=== PATIENT | female | born 1960 ===

== ENCOUNTER 2017-06-20 19:58 | Inpatient (IN) | payer OTHER ==
[2017-06-20 21:48] LABS: BASO # 0.1 K/uL (0.0-0.2); BASO % 0.3 % (0.0-2.0); EOS % 0.1 % (0.0-4.0); HEMOGLOBIN 12.9 g/dL (11.0-16.0); LYMPH # 0.7 K/uL (1.0-4.3); LYMPH % 4.1 % (20.0-40.0); MEAN CORPUSCULAR HEMOGLOBIN 31.6 pg (27.0-31.0); MEAN PLATELET VOLUME 8.8 fL (7.2-11.7); MONO # 0.2 K/uL (0.0-0.8); MONO % 1.3 % (0.0-10.0); NEUT # 16.9 K/uL (1.8-7.0); NEUT % 94.2 % (50.0-75.0); PLATELET COUNT 238 K/uL (130-400); RBC 4.07 Mil/uL (3.80-5.20); RED CELL DISTRIBUTION WIDTH 12.4 % (11.5-14.5)
[2017-06-20 21:50] LABS: MEAN CELL VOLUME 92.9 fL (81.0-99.0); WHITE BLOOD COUNT 17.9 K/uL (4.8-10.8)
[2017-06-20 21:59] LABS: ALBUMIN 4.6 g/dL (3.5-5.0); ALT/SGPT 27 U/L (9-52); AST/SGOT 32 U/L (14-36); BLOOD UREA NITROGEN 17 mg/dL (7-17); CALCIUM 8.8 mg/dl (8.6-10.4); GFR AFRICAN-AMERICAN > 60; GFR NON-AFRICAN AMERICAN > 60; LIPASE 43 U/L (23-300)
[2017-06-20 22:01] LABS: ALB/GLOB RATIO 1.2 (1.0-2.1)
[2017-06-20 22:17] LABS: BANDS 5 % (0-2); BASOPHIL 1 % (0-2); LARGE PLATELETS PRESENT; LYMPHOCYTE 3 % (20-40); MONOCYTE 1 % (0-10); NEUTROPHIL 90 % (50-75); PLATELET ESTIMATE NORMAL (NORMAL); TOTAL CELLS COUNTED 100
[2017-06-20] MEDS ORDERED: Sodium Chloride 0.9% 1,000 ML IV STA (22:23)
[2017-06-20] MEDS ORDERED: Sodium Chloride 0.9% 1,000 ML ONE (22:31)
[2017-06-20 23:07] LABS: URINE BACTERIA MANY (<OCC); URINE BILIRUBIN NEGATIVE (NEGATIVE); URINE BLOOD 3+ (NEGATIVE); URINE CLARITY Hazy (Clear); URINE COLOR Red (YELLOW); URINE GLUCOSE (UA) NORMAL (Normal); URINE LEUKOCYTE ESTERASE 3+ Leu/uL (Negative); URINE NITRATE POSITIVE (NEGATIVE); URINE PROTEIN 2+ mg/dL (NEGATIVE); URINE UROBILINOGEN NORMAL mg/dL (0.2-1.0)
--- NOTE | 2017-06-20 23:53 | CT ---
EXAM: CT Abdomen and Pelvis Without Intravenous Contrast CLINICAL HISTORY: 56 years old, female; Pain; Abdominal pain and other: Vomiting; Patient HX: 01-26-13 sent images; Additional info: Leukocytosis. Suprapubic pain. Hematuria. TECHNIQUE: Axial computed tomography images of the abdomen and pelvis without intravenous contrast. All CT scans at this facility use one or more dose reduction techniques, viz.: automated exposure control; ma/kV adjustment per patient size (including targeted exams where dose is matched to indication; i.e. head); or iterative reconstruction technique. Coronal and sagittal reformatted images were created and reviewed. COMPARISON: CT - ABD PELVIS PO CONTRAST ONLY 2013-01-26 08:19 FINDINGS: Lower thorax: 4 mm nodule in the right lower lobe. Series 2 image #7. This is unchanged. ABDOMEN: Liver: Unremarkable. Gallbladder and bile ducts: Unremarkable. No calcified stones. No ductal dilation. Pancreas: Unremarkable. No ductal dilation. Spleen: Unremarkable. No splenomegaly. Adrenals: Unremarkable. No mass. Kidneys and ureters: Bilateral nephrolithiasis. Left mild left hydronephrosis. Left perinephric stranding. Stomach and bowel: Unremarkable. No obstruction. Appendix: No findings to suggest acute appendicitis. PELVIS: Bladder: 4 mm bladder calculus. This could represent a recently passed stone. Reproductive: Unremarkable as visualized. ABDOMEN and PELVIS: Intraperitoneal space: Unremarkable. No free air. No significant fluid collection. Bones/joints: Scoliosis. Lumbar spinal degenerative changes. No acute fracture. No dislocation. Soft tissues: Unremarkable. Vasculature: Atherosclerotic vascular disease. No abdominal aortic aneurysm. Lymph nodes: Unremarkable. No enlarged lymph nodes. IMPRESSION: 1. Mild left hydronephrosis and perinephric stranding. Suspect recently passed 4 mm calculus, which is now within the bladder. Correlate with timeline of patient's symptoms. Cannot exclude concomitant pyelonephritis. 2. Bilateral nephrolithiasis. 3. Remainder of findings as above.
[2017-06-21] MEDS ORDERED: cefTRIAXone IV 1 gm in Dextros 50 ML IVPB STA (00:07)
--- NOTE | 2017-06-21 00:09 | C.PDOC ---
Time Seen by Provider: 06/20/17 22:16 Chief Complaint (Nursing): Abdominal Pain History Per: Patient Onset/Duration Of Symptoms: Hrs (since this afternoon) Current Symptoms Are (Timing): Still Present Severity: Moderate Location Of Pain/Discomfort: Suprapubic Quality Of Discomfort: "Pain" Associated Symptoms: Nausea, Vomiting, Back Pain, Urinary Symptoms Exacerbating Factors: None Alleviating Factors: None Last Bowel Movement: Today Additional History Per: Prior Records Abnormal Vaginal Bleeding: No Last Menstral Period: Menopause Past Medical History Reviewed: Historical Data, Nursing Documentation, Vital Signs Vital Signs: Last Vital Signs Temp 98.4 F 06/20/17 21:08 Pulse 93 H 06/20/17 21:08 Resp 16 06/20/17 21:08 BP 150/88 06/20/17 21:08 Pulse Ox 100 06/20/17 21:08 - Medical History PMH: Hypercholesterolemia, Kidney Stones Surgical History: No Surg Hx - [facility] Procedures TU REMOV URETER OBSTRUCT (02/01/13) URETERAL CATHETERIZATION (02/01/13) Family History: States: Unknown Family Hx - Social History Hx Tobacco Use: No Hx Alcohol Use: No Hx Substance Use: No - Immunization History Hx Influenza Vaccination: Yes Hx Pneumococcal Vaccination: No Review Of Systems Except As Marked, All Systems Reviewed And Found Negative. Constitutional: Positive for: Malaise Cardiovascular: Negative for: Chest Pain Respiratory: Negative for: Shortness of Breath Gastrointestinal: Positive for: Nausea, Vomiting, Abdominal Pain Genitourinary: Positive for: Hematuria Musculoskeletal: Negative for: Neck Pain Skin: Negative for: Rash Neurological: Negative for: Weakness, Numbness Physical Exam - Physical Exam Appears: Other (Ill appearing) Skin: Normal Color, Warm, Dry, No Rash Head: Atraumatic, Normacephalic Eye(s): bilateral: Normal Inspection, PERRL, EOMI Neck: Normal ROM, Supple Cardiovascular: Rhythm Regular Respiratory: Normal Breath Sounds, No Accessory Muscle Use Gastrointestinal/Abdominal: Soft, Tenderness (suprapubic) Back: CVA Tenderness (left) Extremity: Normal ROM Neurological/Psych: Oriented x3, Normal Motor, Normal Sensation ED Course And Treatment - Laboratory Results Result Diagrams: 06/20/17 21:35 06/20/17 21:35 Lab Interpretation: Abnormal Interpretation Of Abnormal: Leukocytosis with left shift. UTI. O2 Sat by Pulse Oximetry: 100 Pulse Ox Interpretation: Normal - CT Scan/US CT abd/pelv Other Rad Studies (CT/US): Read By Radiologist, Radiology Report Reviewed CT/US Interpretation: IMPRESSION: 1. Mild left hydronephrosis and perinephric stranding. Suspect recently. passed 4 mm calculus, which is now within the bladder. Correlate with timeline. of patient's symptoms. Cannot exclude concomitant pyelonephritis. 2. Bilateral nephrolithiasis. 3. Remainder of findings as above. Progress - Interventions Interventions:: Observation, Intravenous fluid - Medications Administered Intravenous: Antiemetic, H-2 vikas, NSAID - Data Reviewed Data Reviewed: Lab, Diagnostic imaging, Old records - Patient Status Patient status: Partially improved - Continuity of Care Discussed patient case with:: Patient, ED Nurse, Covering for PMD - Patient Plan Patient Plan: Admission Disposition Counseled Patient/Family Regarding: Studies Performed, Diagnosis - Disposition Disposition: HOSPITALIZED Disposition Time: 00:12 Condition: FAIR - Clinical Impression Clinical Impression: Acute pyelonephritis, Kidney stones
[2017-06-21 00:22] VITALS: RESP 20
[2017-06-21] MEDS: Sodium Chloride 0.9% 1,000 ML IV SCH ×3 (01:03→21:03)
--- NOTE | 2017-06-21 02:48 | CP.PCM.HP ---
<Elan Campbell - Last Filed: 06/21/17 06:04> History of Present Illness - History of Present Illness History of Present Illness: PGY-1 H&P for Dr. Catalan CC: "pain in my belly" This is a 56 year old lady with PMHx hyperlipidemia and nephrolithiasis who presents of sudden onset suprapubic pain. It is described as a non-radiating cramping pain 10/10 in intensity. It began at around 4:30 PM yesterday per patient. It seems to have improved with IV fluids and Toradol in the ED. Patient also complaining of nausea and vomiting. Patient cannot count the number of times she has vomited today as a result of this issue. Patient denies dysuria or pressure with urination. However, she does admit that she usually doesn't feel these symptoms when she has a UTI. Patient admits intermittent chills but denies fever. PMHx: hyperlipidemia, nephrolithiasis PSHx: unspecified surgery for kidney stones in 2012 Allergies: NKDA Social: Denies tobacco, alcohol, drugs. 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 Family Hx: Mother with HTN, DM, liver problems. Father with type 1 DM. PMD: Dr. King Urologist: Dr. Bennett [place] meds: ASA 81 mg PO daily, Simvastatin, patient unsure of dose Present on Admission - Present on Admission Any Indicators Present on Admission: No Review of Systems - Constitutional Constitutional: Chills (intermittent). absent: Fever, Headache - EENT Eyes: absent: Change in Vision Ears: absent: Decreased Hearing Nose/Mouth/Throat: absent: Nasal Congestion - Cardiovascular Cardiovascular: absent: Chest Pain - Respiratory Respiratory: absent: Cough, Dyspnea - Gastrointestinal Gastrointestinal: Other (suprapubic tenderness) - Genitourinary Genitourinary: absent: Dysuria, Hematuria - Musculoskeletal Musculoskeletal: absent: Back Pain - Integumentary Integumentary: absent: Rash - Neurological Neurological: absent: Weakness - Psychiatric Psychiatric: absent: Anxiety - Endocrine Endocrine: absent: Fatigue, Palpitations Past Patient History - Past Medical History & Family History Past Medical History?: No - Past Social History Smoking Status: Never Smoked - CARDIAC Hx Cardiac Disorders: Yes Hx Hypercholesterolemia: Yes - PULMONARY Hx Respiratory Disorders: No - NEUROLOGICAL Hx Neurological Disorder: No - HEENT Hx HEENT Problems: No - RENAL Hx Chronic Kidney Disease: Yes Hx Kidney Stones: Yes Other/Comment: HX Lithotripsy by in 2013 - ENDOCRINE/METABOLIC Hx Endocrine Disorders: No - HEMATOLOGICAL/ONCOLOGICAL Hx Blood Disorders: No - INTEGUMENTARY Hx Dermatological Problems: No - MUSCULOSKELETAL/RHEUMATOLOGICAL Hx Musculoskeletal Disorders: No Hx Falls: No - GASTROINTESTINAL Hx Gastrointestinal Disorders: No - GENITOURINARY/GYNECOLOGICAL Hx Genitourinary Disorders: Yes Hx Hematuria: Yes (Lithotrpsy in 2013) - PSYCHIATRIC Hx Psychophysiologic Disorder: No Hx Substance Use: No - SURGICAL HISTORY Hx Surgeries: Yes Hx Section: Yes (1x) Other/Comment: for kidney stone 2013 - ANESTHESIA Hx Anesthesia: Yes Hx Anesthesia Reactions: No Hx Malignant Hyperthermia: No Has any member of the family had a problem w/ anesthesia?: No Meds Allergies/Adverse Reactions: Allergies Allergy/AdvReac Type Severity Reaction Status Date / Time No Known Allergies Allergy Verified 06/20/17 21:14 Physical Exam - Constitutional Appears: No Acute Distress - Head Exam Head Exam: ATRAUMATIC, NORMOCEPHALIC - Eye Exam Eye Exam: EOMI, PERRL - ENT Exam ENT Exam: Mucous Membranes Moist - Respiratory Exam Respiratory Exam: Clear to Auscultation Bilateral. absent: Rales, Rhonchi, Wheezes - Cardiovascular Exam Cardiovascular Exam: REGULAR RHYTHM, +S1, +S2 - GI/Abdominal Exam GI & Abdominal Exam: Normal Bowel Sounds, Soft, Tenderness (tenderness to palpation to the left of the umbilicus). absent: Distended, Firm, Guarding - Extremities Exam Extremities exam: Positive for: pedal pulses present. Negative for: pedal edema , tenderness - Back Exam Back exam: CVA tenderness (L). absent: CVA tenderness (R) - Neurological Exam Neurological exam: Alert, CN II-XII Intact, Oriented x3 - Psychiatric Exam Psychiatric exam: Normal Affect, Normal Mood - Skin Skin Exam: Dry, Intact, Pallor, Warm Results - Vital Signs Recent Vital Signs: Last Vital Signs Temp 100 F H 06/21/17 01:07 Pulse 96 H 06/21/17 01:20 Resp 20 06/21/17 01:20 BP 126/76 06/21/17 00:22 Pulse Ox 99 06/21/17 00:22 - Labs Result Diagrams: 06/20/17 21:35 06/20/17 21:35 Labs: Laboratory Results - last 24 hr 06/20/17 06/20/17 06/20/17 21:35 21:35 22:59 WBC 17.9 H D RBC 4.07 Hgb 12.9 Hct 37.8 MCV 92.9 D MCH 31.6 H MCHC 34.0 RDW 12.4 Plt Count 238 MPV 8.8 Neut % (Auto) 94.2 H Lymph % (Auto) 4.1 L [place] % (Auto) 1.3 Eos % (Auto) 0.1 Baso % (Auto) 0.3 Neut # 16.9 H Lymph # 0.7 L [place] # 0.2 Eos # 0.0 Baso # 0.1 Neutrophils % (Manual) 90 H Band Neutrophils % 5 H Lymphocytes % (Manual) 3 L Monocytes % (Manual) 1 Basophils % (Manual) 1 Platelet Estimate Normal Large Platelets Present Sodium 134 Potassium 3.4 L Chloride 99 Carbon Dioxide 27 Anion Gap 12 BUN 17 Creatinine 0.8 Est GFR ( Amer) > 60 Est GFR (Non-Af Amer) > 60 Random Glucose 170 H Calcium 8.8 Total Bilirubin 0.8 AST 32 ALT 27 Alkaline Phosphatase 71 Total Protein 8.5 H Albumin 4.6 Globulin 3.9 Albumin/Globulin Ratio 1.2 Lipase 43 Urine Color Red Urine Clarity Hazy Urine pH 6.0 Ur Specific [place] 1.013 Urine Protein 2+ H Urine Glucose (UA) Normal Urine Ketones Trace Urine Blood 3+ H Urine Nitrate Positive H Urine Bilirubin Negative Urine Urobilinogen Normal Ur Leukocyte Esterase 3+ H Urine WBC (Auto) 977 H Urine RBC (Auto) 1809 H Urine Bacteria Many H Assessment & Plan - Assessment and Plan (Free Text) Plan: Pyelonephritis UA shows positive nitrates, 3+ leukocyte esterase, 3+ blood, 2+ protein f/u urine cultures f/u blood cultures Rocephin 1 gm IV Q12H NS 100 cc/hr CT abdomen shows mild left hydronephrosis and perinephric stranding. Suspect recently passed 4 mm calculus, which is now within the bladder. Tylenol prn History of Nephrolithiasis Bilateral nephrolithiasis seen on CT abdomen/pelvis Patient's urologist Dr. Bennett consulted, help appreciated. History of Hyperlipidemia Simvastatin is NF started Crestor 5 mg PO HS f/u lipid panel Prophylactic Measures Liquid Diet due to nausea/vomiting. Advance as tolerated. Zofran 4 mg IV prn Heparin 5000 SC Q8H Protonix 40 mg PO daily Case DW Dr. Alayna Campbell PGY-1 <Jones Catalan - Last Filed: 06/21/17 06:25> Results - Vital Signs Recent Vital Signs: Last Vital Signs Temp 99.5 F 06/21/17 04:30 Pulse 96 H 06/21/17 01:20 Resp 20 06/21/17 01:20 BP 124/78 06/21/17 01:20 Pulse Ox 98 06/21/17 01:20 - Labs Result Diagrams: 06/20/17 21:35 06/20/17 21:35 Labs: Laboratory Results - last 24 hr 06/20/17 06/20/17 06/20/17 21:35 21:35 22:59 WBC 17.9 H D RBC 4.07 Hgb 12.9 Hct 37.8 MCV 92.9 D MCH 31.6 H MCHC 34.0 RDW 12.4 Plt Count 238 MPV 8.8 Neut % (Auto) 94.2 H Lymph % (Auto) 4.1 L [place] % (Auto) 1.3 Eos % (Auto) 0.1 Baso % (Auto) 0.3 Neut # 16.9 H Lymph # 0.7 L [place] # 0.2 Eos # 0.0 Baso # 0.1 Neutrophils % (Manual) 90 H Band Neutrophils % 5 H Lymphocytes % (Manual) 3 L Monocytes % (Manual) 1 Basophils % (Manual) 1 Platelet Estimate Normal Large Platelets Present Sodium 134 Potassium 3.4 L Chloride 99 Carbon Dioxide 27 Anion Gap 12 BUN 17 Creatinine 0.8 Est GFR ( Amer) > 60 Est GFR (Non-Af Amer) > 60 Random Glucose 170 H Calcium 8.8 Total Bilirubin 0.8 AST 32 ALT 27 Alkaline Phosphatase 71 Total Protein 8.5 H Albumin 4.6 Globulin 3.9 Albumin/Globulin Ratio 1.2 Lipase 43 Urine Color Red Urine Clarity Hazy Urine pH 6.0 Ur Specific [place] 1.013 Urine Protein 2+ H Urine Glucose (UA) Normal Urine Ketones Trace Urine Blood 3+ H Urine Nitrate Positive H Urine Bilirubin Negative Urine Urobilinogen Normal Ur Leukocyte Esterase 3+ H Urine WBC (Auto) 977 H Urine RBC (Auto) 1809 H Urine Bacteria Many H Assessment & Plan - Date & Time Date: 06/21/17 (I have seen and examined the patient. I agree with the findings and plan of care as documented by Dr. Campbell. Patient with pyelonephritis. History of nephrolithiasis. Consult to Dr Bennett. Leoncio. Symptomatic treatment. Monitor for acute changes.) Time: 06:24 Attending/Attestation - Attestation I have personally seen and examined this patient.: Yes I have fully participated in the care of the patient.: Yes I have reviewed all pertinent clinical information: Yes
[2017-06-21 06:52] LABS: BASO % 0.1 % (0.0-2.0); HEMOGLOBIN 11.5 g/dL (11.0-16.0); LYMPH # 0.6 K/uL (1.0-4.3); LYMPH % 2.5 % (20.0-40.0); MEAN CELL VOLUME 92.3 fL (81.0-99.0); MEAN CORPUSCULAR HEMOGLOBIN 31.9 pg (27.0-31.0); MEAN CORPUSCULAR HGB CONC 34.6 g/dL (33.0-37.0); MEAN PLATELET VOLUME 8.8 fL (7.2-11.7); MONO % 4.4 % (0.0-10.0); NEUT # 21.1 K/uL (1.8-7.0); PLATELET COUNT 177 K/uL (130-400); RBC 3.61 Mil/uL (3.80-5.20); RED CELL DISTRIBUTION WIDTH 12.4 % (11.5-14.5); WHITE BLOOD COUNT 22.6 K/uL (4.8-10.8)
[2017-06-21] MEDS ORDERED: Potassium Chloride 20 mEq/15 ml LIQ UD PO ONE (07:00)
[2017-06-21 07:01] LABS: ALB/GLOB RATIO 1.1 (1.0-2.1); ALBUMIN 3.6 g/dL (3.5-5.0); ALT/SGPT 36 U/L (9-52); AST/SGOT 28 U/L (14-36); BLOOD UREA NITROGEN 15 mg/dL (7-17); CALCIUM 8.2 mg/dl (8.6-10.4); GFR AFRICAN-AMERICAN > 60; GFR NON-AFRICAN AMERICAN > 60; HDL CHOLESTEROL 57 mg/dL (30-70)
[2017-06-21 07:08] LABS: LDL CHOLESTEROL 63 mg/dL (0-129)
[2017-06-21 08:59] LABS: ANISOCYTOSIS SLIGHT; BANDS 11 % (0-2); HYPOCHROMIC SLIGHT; LYMPHOCYTE 3 % (20-40); MONOCYTE 3 % (0-10); NEUTROPHIL 83 % (50-75); PLATELET ESTIMATE NORMAL (NORMAL); POIKILOCYTOSIS SLIGHT; TOTAL CELLS COUNTED 100
[2017-06-21] MEDS: Pantoprazole 40 mg EC Tab PO SCH (09:08)
--- NOTE | 2017-06-21 09:34 | CP.PCM.PN ---
<Talia Matos - Last Filed: 06/21/17 15:45> Subjective - Date & Time of Evaluation Date of Evaluation: 06/21/17 Time of Evaluation: 07:00 - Subjective Subjective: PGY1- Medicine Note- Dr. Hoff's Service Patient seen and examined at bedside and in no acute distress. Patient says she feels fevers and chills. Patient having left lower abdominal pain which she rates a 6/10. Patient had one episode of vomiting after drinking precious angel this morning. Patient denies any constipation or diarrhea. Patient denies shortness of breath or chest pain. Objective - Vital Signs/Intake and Output Vital Signs (last 24 hours): Temp Pulse Resp BP Pulse Ox 100.7 F H 105 H 20 162/73 H 96 06/21/17 07:50 06/21/17 07:50 06/21/17 07:50 06/21/17 07:50 06/21/17 07:50 - Medications Medications: Current Medications Acetaminophen (Tylenol 325mg Tab) 650 mg PO Q6 PRN PRN Reason: fever, mild pain Last Admin: 06/21/17 09:09 Dose: 650 mg Heparin Sodium (Porcine) (Heparin) 5,000 units SC Q8 [facility] Last Admin: 06/21/17 06:23 Dose: 5,000 units Sodium Chloride (Sodium Chloride 0.9%) 1,000 mls @ 100 mls/hr IV .Q10H [facility] Last Admin: 06/21/17 01:03 Dose: 100 mls/hr Ceftriaxone Sodium 1 gm/ (Sodium Chloride) 100 mls @ 100 mls/hr IVPB Q12H [facility] Ondansetron HCl (Zofran Inj) 4 mg IVP Q6 PRN PRN Reason: Nausea/Vomiting Last Admin: 06/21/17 04:45 Dose: 4 mg Pantoprazole Sodium (Protonix Ec Tab) 40 mg PO DAILY [facility] Last Admin: 06/21/17 09:08 Dose: 40 mg Pneumococcal Polyvalent Vaccine (Pneumovax 23 Vaccine) 0.5 ml IM .ONCE ONE Stop: 06/24/17 14:01 Rosuvastatin Calcium (Crestor) 5 mg PO HS [facility] - Labs Labs: 06/21/17 06:39 06/21/17 06:39 - Constitutional Appears: Non-toxic, No Acute Distress - Head Exam Head Exam: ATRAUMATIC, NORMAL INSPECTION, NORMOCEPHALIC - Eye Exam Eye Exam: EOMI, Normal appearance - Respiratory Exam Respiratory Exam: Clear to Ausculation Bilateral, NORMAL BREATHING PATTERN. absent: Rales, Rhonchi, Wheezes, Stridor - Cardiovascular Exam Cardiovascular Exam: REGULAR RHYTHM, +S1, +S2 - GI/Abdominal Exam GI & Abdominal Exam: Soft, Tenderness, Normal Bowel Sounds. absent: Firm, Guarding - Extremities Exam Extremities Exam: Normal Inspection. absent: Pedal Edema - Back Exam Back Exam: CVA tenderness (L) - Neurological Exam Neurological Exam: Alert, Awake, Oriented x3 - Psychiatric Exam Psychiatric exam: Normal Affect, Normal Mood - Skin Skin Exam: Intact, Normal Color, Warm Assessment and Plan - Assessment and Plan (Free Text) Assessment: Pyelonephritis UA shows positive nitrates, 3+ leukocyte esterase, 3+ blood, 2+ protein WBC: 22.6, 11 bands f/u urine cultures f/u blood cultures Ceftriaxone given in ED Merrem 1gm q8h (started on 06/21/17) Vanco 1gm q12h (started on 06/21/17) NS 100 cc/hr CT abdomen shows mild left hydronephrosis and perinephric stranding. Suspect recently passed 4 mm calculus, which is now within the bladder. Tylenol prn History of Nephrolithiasis Bilateral nephrolithiasis seen on CT abdomen/pelvis Patient's urologist Dr. Bennett consulted, help appreciated. History of Hyperlipidemia Simvastatin is NF started Crestor 5 mg PO HS Triglycerides: 36 Cholesterol: 141 LDL: 63 HDL: 57 Prophylactic Measures Liquid Diet due to nausea/vomiting. Advance as tolerated. Zofran 4 mg IV prn Heparin 5000 SC Q8H Protonix 40 mg PO daily <Wolfgang Hoff - Last Filed: 06/21/17 19:13> Objective - Vital Signs/Intake and Output Vital Signs (last 24 hours): Temp Pulse Resp BP Pulse Ox 100.7 F H 95 H 20 109/70 95 06/21/17 17:18 06/21/17 15:10 06/21/17 15:10 06/21/17 15:10 06/21/17 15:10 - Medications Medications: Current Medications Acetaminophen (Tylenol 325mg Tab) 650 mg PO Q6 PRN PRN Reason: fever, mild pain Last Admin: 06/21/17 16:14 Dose: 650 mg Heparin Sodium (Porcine) (Heparin) 5,000 units SC Q8 [facility] Last Admin: 06/21/17 13:15 Dose: 5,000 units Sodium Chloride (Sodium Chloride 0.9%) 1,000 mls @ 100 mls/hr IV .Q10H [facility] Last Admin: 06/21/17 13:14 Dose: 100 mls/hr Meropenem 1 gm/ Sodium (Chloride) 100 mls @ 100 mls/hr IVPB Q8H [facility] Last Admin: 06/21/17 16:15 Dose: 100 mls/hr Vancomycin/Sodium Chloride (Vancomycin 1 Gm/Ns 200 Ml) 1 gm in 200 mls @ 133.333 mls/hr IVPB Q12H [facility] Stop: 06/26/17 13:01 Last Admin: 06/21/17 13:14 Dose: 133.333 mls/hr Ondansetron HCl (Zofran Inj) 4 mg IVP Q6 PRN PRN Reason: Nausea/Vomiting Last Admin: 06/21/17 04:45 Dose: 4 mg Pantoprazole Sodium (Protonix Ec Tab) 40 mg PO DAILY [facility] Last Admin: 06/21/17 09:08 Dose: 40 mg Pneumococcal Polyvalent Vaccine (Pneumovax 23 Vaccine) 0.5 ml IM .ONCE ONE Stop: 06/24/17 14:01 Rosuvastatin Calcium (Crestor) 5 mg PO HS [facility] - Labs Labs: 06/21/17 06:39 06/21/17 06:39 Attending/Attestation - Attestation I have personally seen and examined this patient.: Yes I have fully participated in the care of the patient.: Yes I have reviewed all pertinent clinical information, including history, physical exam and plan: Yes Notes (Text): Seen and examined patient has fever,leukocytosis with bandemia.CT consistant with pyelonephritis d/w Dr Clarke statrted on meropenem and vanco I agree with the documentation of the assessment and the plan
[2017-06-21] MEDS ORDERED: Piperacill/Tazo 3.375gm in Dex 3.375 GM/50 ML BAG IVPB SCH (11:00)
[2017-06-21] MEDS: Meropenem 1 GM in Sodium Chloride 0.9% 100 ML IVPB SCH ×2 (11:01→16:15)
[2017-06-21] MEDS: Vancomycin 1 gm/NS 200 ml 1 GM/200 ML BAG IVPB SCH (13:14)
--- NOTE | 2017-06-21 17:55 | CP.PCM.CON ---
History of Present Illness - History of Present Illness History of Present Illness: dictated Past Patient History - Past Medical History & Family History Past Medical History?: No - Past Social History Smoking Status: Never Smoked - CARDIAC Hx Cardiac Disorders: Yes Hx Hypercholesterolemia: Yes - PULMONARY Hx Respiratory Disorders: No - NEUROLOGICAL Hx Neurological Disorder: No - HEENT Hx HEENT Problems: No - RENAL Hx Chronic Kidney Disease: Yes Hx Kidney Stones: Yes Other/Comment: HX Lithotripsy by in 2012 - ENDOCRINE/METABOLIC Hx Endocrine Disorders: No - HEMATOLOGICAL/ONCOLOGICAL Hx Blood Disorders: No - INTEGUMENTARY Hx Dermatological Problems: No - MUSCULOSKELETAL/RHEUMATOLOGICAL Hx Musculoskeletal Disorders: No Hx Falls: No - GASTROINTESTINAL Hx Gastrointestinal Disorders: No - GENITOURINARY/GYNECOLOGICAL Hx Genitourinary Disorders: Yes Hx Hematuria: Yes (Lithotrpsy in 2012) - PSYCHIATRIC Hx Psychophysiologic Disorder: No Hx Substance Use: No - SURGICAL HISTORY Hx Surgeries: Yes Hx Section: Yes (1x) Other/Comment: for kidney stone 2012 - ANESTHESIA Hx Anesthesia: Yes Hx Anesthesia Reactions: No Hx Malignant Hyperthermia: No Has any member of the family had a problem w/ anesthesia?: No Meds Allergies/Adverse Reactions: Allergies Allergy/AdvReac Type Severity Reaction Status Date / Time No Known Allergies Allergy Verified 06/20/17 21:14 - Medications Medications: Current Medications Acetaminophen (Tylenol 325mg Tab) 650 mg PO Q6 PRN PRN Reason: fever, mild pain Last Admin: 06/21/17 16:14 Dose: 650 mg Heparin Sodium (Porcine) (Heparin) 5,000 units SC Q8 [facility] Last Admin: 06/21/17 13:15 Dose: 5,000 units Sodium Chloride (Sodium Chloride 0.9%) 1,000 mls @ 100 mls/hr IV .Q10H [facility] Last Admin: 06/21/17 13:14 Dose: 100 mls/hr Meropenem 1 gm/ Sodium (Chloride) 100 mls @ 100 mls/hr IVPB Q8H [facility] Last Admin: 06/21/17 16:15 Dose: 100 mls/hr Vancomycin/Sodium Chloride (Vancomycin 1 Gm/Ns 200 Ml) 1 gm in 200 mls @ 133.333 mls/hr IVPB Q12H [facility] Stop: 06/26/17 13:01 Last Admin: 06/21/17 13:14 Dose: 133.333 mls/hr Ondansetron HCl (Zofran Inj) 4 mg IVP Q6 PRN PRN Reason: Nausea/Vomiting Last Admin: 06/21/17 04:45 Dose: 4 mg Pantoprazole Sodium (Protonix Ec Tab) 40 mg PO DAILY [facility] Last Admin: 06/21/17 09:08 Dose: 40 mg Pneumococcal Polyvalent Vaccine (Pneumovax 23 Vaccine) 0.5 ml IM .ONCE ONE Stop: 06/24/17 14:01 Rosuvastatin Calcium (Crestor) 5 mg PO HS [facility] Results - Vital Signs Recent Vital Signs: Last Vital Signs Temp 100.7 F H 06/21/17 17:18 Pulse 95 H 06/21/17 15:10 Resp 20 06/21/17 15:10 BP 109/70 06/21/17 15:10 Pulse Ox 95 06/21/17 15:10 - Labs Result Diagrams: 06/21/17 06:39 06/21/17 06:39 Labs: Laboratory Results - last 24 hr 06/20/17 06/20/17 06/20/17 21:35 21:35 22:59 WBC 17.9 H D RBC 4.07 Hgb 12.9 Hct 37.8 MCV 92.9 D MCH 31.6 H MCHC 34.0 RDW 12.4 Plt Count 238 MPV 8.8 Neut % (Auto) 94.2 H Lymph % (Auto) 4.1 L [place] % (Auto) 1.3 Eos % (Auto) 0.1 Baso % (Auto) 0.3 Neut # 16.9 H Lymph # 0.7 L [place] # 0.2 Eos # 0.0 Baso # 0.1 Neutrophils % (Manual) 90 H Band Neutrophils % 5 H Lymphocytes % (Manual) 3 L Monocytes % (Manual) 1 Basophils % (Manual) 1 Platelet Estimate Normal Large Platelets Present Hypochromasia (manual) Poikilocytosis (manual Anisocytosis (manual) Sodium 134 Potassium 3.4 L Chloride 99 Carbon Dioxide 27 Anion Gap 12 BUN 17 Creatinine 0.8 Est GFR ( Amer) > 60 Est GFR (Non-Af Amer) > 60 Random Glucose 170 H Calcium 8.8 Total Bilirubin 0.8 AST 32 ALT 27 Alkaline Phosphatase 71 Total Protein 8.5 H Albumin 4.6 Globulin 3.9 Albumin/Globulin Ratio 1.2 Triglycerides Cholesterol LDL Cholesterol Direct HDL Cholesterol Lipase 43 Urine Color Red Urine Clarity Hazy Urine pH 6.0 Ur Specific [place] 1.013 Urine Protein 2+ H Urine Glucose (UA) Normal Urine Ketones Trace Urine Blood 3+ H Urine Nitrate Positive H Urine Bilirubin Negative Urine Urobilinogen Normal Ur Leukocyte Esterase 3+ H Urine WBC (Auto) 977 H Urine RBC (Auto) 1809 H Urine Bacteria Many H 06/21/17 06/21/17 06:39 06:39 WBC 22.6 H RBC 3.61 L Hgb 11.5 Hct 33.3 L MCV 92.3 MCH 31.9 H MCHC 34.6 RDW 12.4 Plt Count 177 MPV 8.8 Neut % (Auto) 93.0 H Lymph % (Auto) 2.5 L [place] % (Auto) 4.4 Eos % (Auto) 0.0 Baso % (Auto) 0.1 Neut # 21.1 H Lymph # 0.6 L [place] # 1.0 H Eos # 0.0 Baso # 0.0 Neutrophils % (Manual) 83 H Band Neutrophils % 11 H* Lymphocytes % (Manual) 3 L Monocytes % (Manual) 3 Basophils % (Manual) Platelet Estimate Normal Large Platelets Hypochromasia (manual) Slight Poikilocytosis (manual Slight Anisocytosis (manual) Slight Sodium 139 Potassium 3.6 Chloride 103 Carbon Dioxide 26 Anion Gap 14 BUN 15 Creatinine 0.7 Est GFR ( Amer) > 60 Est GFR (Non-Af Amer) > 60 Random Glucose 118 H Calcium 8.2 L Total Bilirubin 0.6 AST 28 ALT 36 Alkaline Phosphatase 55 Total Protein 6.9 Albumin 3.6 Globulin 3.2 Albumin/Globulin Ratio 1.1 Triglycerides 36 Cholesterol 141 LDL Cholesterol Direct 63 HDL Cholesterol 57 Lipase Urine Color Urine Clarity Urine pH Ur Specific [place] Urine Protein Urine Glucose (UA) Urine Ketones Urine Blood Urine Nitrate Urine Bilirubin Urine Urobilinogen Ur Leukocyte Esterase Urine WBC (Auto) Urine RBC (Auto) Urine Bacteria
--- NOTE | 2017-06-21 19:12 | CP.PCM.PN ---
Subjective - Date & Time of Evaluation Date of Evaluation: 06/21/17 Time of Evaluation: 19:12 - Subjective Subjective: 56 year old female admitted with Pylonephritis. Pt is being treated By ID with IV antibiotics. CT shows evidence of recently passed calculi in bladder and non obstructing stone in Kidney. Suggest start pt on Flomax Pt should strain all urine for stone. On discharge pt should have evaluation for lithotripsy by a urologist. Donald Objective - Vital Signs/Intake and Output Vital Signs (last 24 hours): Temp Pulse Resp BP Pulse Ox 100.7 F H 95 H 20 109/70 95 06/21/17 17:18 06/21/17 15:10 06/21/17 15:10 06/21/17 15:10 06/21/17 15:10 - Medications Medications: Current Medications Acetaminophen (Tylenol 325mg Tab) 650 mg PO Q6 PRN PRN Reason: fever, mild pain Last Admin: 06/21/17 16:14 Dose: 650 mg Heparin Sodium (Porcine) (Heparin) 5,000 units SC Q8 [facility] Last Admin: 06/21/17 13:15 Dose: 5,000 units Sodium Chloride (Sodium Chloride 0.9%) 1,000 mls @ 100 mls/hr IV .Q10H [facility] Last Admin: 06/21/17 13:14 Dose: 100 mls/hr Meropenem 1 gm/ Sodium (Chloride) 100 mls @ 100 mls/hr IVPB Q8H [facility] Last Admin: 06/21/17 16:15 Dose: 100 mls/hr Vancomycin/Sodium Chloride (Vancomycin 1 Gm/Ns 200 Ml) 1 gm in 200 mls @ 133.333 mls/hr IVPB Q12H [facility] Stop: 06/26/17 13:01 Last Admin: 06/21/17 13:14 Dose: 133.333 mls/hr Ondansetron HCl (Zofran Inj) 4 mg IVP Q6 PRN PRN Reason: Nausea/Vomiting Last Admin: 06/21/17 04:45 Dose: 4 mg Pantoprazole Sodium (Protonix Ec Tab) 40 mg PO DAILY [facility] Last Admin: 06/21/17 09:08 Dose: 40 mg Pneumococcal Polyvalent Vaccine (Pneumovax 23 Vaccine) 0.5 ml IM .ONCE ONE Stop: 06/24/17 14:01 Rosuvastatin Calcium (Crestor) 5 mg PO HS [facility] - Labs Labs: 06/21/17 06:39 06/21/17 06:39
--- NOTE | 2017-06-22 00:31 | CON ---
DATE: HISTORY OF PRESENT ILLNESS: Patient is a 56-year-old female. She has a history of kidney stone. She states twice she has had problems with it in 2009 and 2012. She had a surgery for kidney stone removal with Dr. Ledezma and is admitted now with pain in her belly. She does have hyperlipidemia. Denies any history of diabetes; had cramping pain on the left side, 10/10, and it began yesterday. She was given Toradol. She vomited yesterday and she vomited today also. She has nausea and she says right now she is not nauseated, but she also had the hematuria, was having some chills, but no fever. She has a history of kidney stones in the past. PAST SURGICAL HISTORY: Surgical history of kidney stone in 2012, also had a section. ALLERGIES: SHE IS NOT ALLERGIC TO ANY MEDICINE. SOCIAL HISTORY: Negative for smoking or drinking. 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 FAMILY HISTORY: Significant for mother having hypertension, diabetes and liver problems, and father has type 1 diabetes. MEDICATIONS: She was started on Tylenol, heparin. She was on Merrem 1 g q.8, which was discussed with me. Zofran, Protonix, Crestor and she is on vancomycin 1 g q.12 hours. So we are covering for problems. She comes in with chills. Denied any fever. No headache. She got Toradol in the ER. Has no nasal congestion. No upper respiratory symptoms. She denied any chest pain. No cough, no dyspnea. She has suprapubic tenderness and left abdomen pain. She states she did have dark colored urine yesterday. She does have some left CVA tenderness at this time. Denies any rash. No neurological problems. Feels very weak. No psych problems. No endocrine problems, but family history is significant for diabetes. Social history is negative for smoking or drinking. She has cardiac issues with high cholesterol. Denies any respiratory. No neurological, no HEENT problems. Renal, she has had lithotripsy with Dr. Ledezma in 2012. No endocrine problems. No hematological, no derm, no musculoskeletal problems. Just feels weak. Denies GI problems, but had vomiting this morning and yesterday and also has hematuria and denies any psych issues and has had one and kidney stone surgery in the past, and is not allergic to any medicines. PHYSICAL EXAMINATION: VITAL SIGNS: On examination, I find her temperature as 100.7 right now, pulse is 95, blood pressure 109/70, respirations are 20. HEENT: Head is atraumatic, normocephalic. Pupils are reacting to light. Throat: No congestion. No thrush seen. NECK: Supple. JVP is flat. LUNGS: Clear. No crackles or rales present. HEART: S1, S2 is regular. No murmurs appreciated. ABDOMEN: Soft. There is some tenderness on the left side of the umbilicus. No guarding, no rigidity present. Left CVA tenderness present. Right CVA tenderness is absent. No suprapubic tenderness. EXTREMITIES: Have no edema, clubbing or cyanosis. LABORATORY DATA: Her white count went up to 22.6 this morning and her hemoglobin is 11.5, hematocrit . She has 83 neutrophils, bands are 11, lymphs are 3, monos are 3. So, at this time, her white count increased from yesterday to today and I think, the Merrem was changed just this morning. She has 11 bands and micro cultures are pending at this time. UA has 3+ leukocytes, wbc 977, bacteria many, and report gives there was an abdomen and pelvic CT done, which showed mild left hydronephrosis and perinephric stranding, suspect recently passed 4-mm calculus, which is now within the bladder correlates with the timeline of patient's symptoms, cannot exclude concomitant pyelonephritis, bilateral nephrolithiasis. Remainder of findings as above. She had mild left hydronephrosis and left perinephric stranding and has a stone, which she is just passing to the bladder. She also has 4-mm nodule in the right lower field and this is unchanged. At this time, she has been admitted complicated UTI with kidney stones and has left hydronephrosis, most likely related to the bilateral stones. Suggested this time to continue with antibiotics and since she is still febrile and had the 11 bands, we will give her tobramycin one dose and we will follow septic workup. I hope they have sent blood culture and urine culture. Dunia Clarke MD
[2017-06-22] MEDS: Vancomycin 1 gm/NS 200 ml 1 GM/200 ML BAG IVPB SCH ×2 (01:08→13:20)
[2017-06-22] MEDS: Meropenem 1 GM in Sodium Chloride 0.9% 100 ML IVPB SCH ×3 (03:00→18:07)
[2017-06-22 07:30] LABS: BASO # 0.1 K/uL (0.0-0.2); BASO % 0.3 % (0.0-2.0); EOS % 0.1 % (0.0-4.0); HEMOGLOBIN 10.5 g/dL (11.0-16.0); LYMPH # 0.7 K/uL (1.0-4.3); LYMPH % 3.7 % (20.0-40.0); MEAN CELL VOLUME 93.2 fL (81.0-99.0); MEAN CORPUSCULAR HEMOGLOBIN 31.3 pg (27.0-31.0); MEAN CORPUSCULAR HGB CONC 33.5 g/dL (33.0-37.0); MONO # 0.6 K/uL (0.0-0.8); MONO % 3.5 % (0.0-10.0); NEUT # 16.8 K/uL (1.8-7.0); NEUT % 92.4 % (50.0-75.0); PLATELET COUNT 147 K/uL (130-400); RBC 3.36 Mil/uL (3.80-5.20); RED CELL DISTRIBUTION WIDTH 12.6 % (11.5-14.5); WHITE BLOOD COUNT 18.2 K/uL (4.8-10.8)
[2017-06-22 07:48] LABS: ALB/GLOB RATIO 1.1 (1.0-2.1); ALBUMIN 3.3 g/dL (3.5-5.0); ALT/SGPT 37 U/L (9-52); AST/SGOT 28 U/L (14-36); BLOOD UREA NITROGEN 11 mg/dL (7-17); CALCIUM 7.6 mg/dl (8.6-10.4); GFR AFRICAN-AMERICAN > 60; GFR NON-AFRICAN AMERICAN > 60; MAGNESIUM 1.6 mg/dL (1.6-2.3)
[2017-06-22 08:48] LABS: ANISOCYTOSIS SLIGHT; BANDS 2 % (0-2); LYMPHOCYTE 3 % (20-40); MONOCYTE 4 % (0-10); NEUTROPHIL 91 % (50-75); PLATELET ESTIMATE NORMAL (NORMAL); TOTAL CELLS COUNTED 100
[2017-06-22 08:49] LABS: HYPOCHROMIC SLIGHT; MICROCYTOSIS SLIGHT; POIKILOCYTOSIS SLIGHT
--- NOTE | 2017-06-22 09:26 | CP.PCM.PN ---
<Talia Matos - Last Filed: 06/22/17 12:38> Subjective - Date & Time of Evaluation Date of Evaluation: 06/22/17 Time of Evaluation: 07:00 - Subjective Subjective: PGY1- Medicine Note- Dr. Hoff Patient seen and examined at bedside and in no acute distress. Patient says she has not vomited since yesterday morning, but is still having nausea. Patient would like to try more food today because she is feeling hungry. Patient is also still having abdominal pain which is more central today and she rates 7/ 10. Patient has some low left sided flank pain. Patient has not had a bowel movement since Monday, but has only been having liquids. Patient denies any shortness of breath or chest pain. Objective - Vital Signs/Intake and Output Vital Signs (last 24 hours): Temp Pulse Resp BP Pulse Ox 101.5 F H 95 H 20 124/80 96 06/22/17 07:40 06/22/17 07:40 06/22/17 07:40 06/22/17 07:40 06/22/17 07:40 Intake and Output: 06/22/17 06/22/17 06:59 18:59 Intake Total 1520 Balance 1520 - Medications Medications: Current Medications Acetaminophen (Tylenol 325mg Tab) 650 mg PO Q6 PRN PRN Reason: fever, mild pain Last Admin: 06/21/17 16:14 Dose: 650 mg Heparin Sodium (Porcine) (Heparin) 5,000 units SC Q8 [facility] Last Admin: 06/22/17 05:21 Dose: 5,000 units Sodium Chloride (Sodium Chloride 0.9%) 1,000 mls @ 100 mls/hr IV .Q10H [facility] Last Admin: 06/21/17 21:03 Dose: Not Given Meropenem 1 gm/ Sodium (Chloride) 100 mls @ 100 mls/hr IVPB Q8H [facility] Last Admin: 06/22/17 03:00 Dose: 100 mls/hr Vancomycin/Sodium Chloride (Vancomycin 1 Gm/Ns 200 Ml) 1 gm in 200 mls @ 133.333 mls/hr IVPB Q12H [facility] Stop: 06/26/17 13:01 Last Admin: 06/22/17 01:08 Dose: 133.333 mls/hr Ondansetron HCl (Zofran Inj) 4 mg IVP Q6 PRN PRN Reason: Nausea/Vomiting Last Admin: 06/22/17 08:17 Dose: 4 mg Pantoprazole Sodium (Protonix Ec Tab) 40 mg PO DAILY [facility] Last Admin: 06/21/17 09:08 Dose: 40 mg Pneumococcal Polyvalent Vaccine (Pneumovax 23 Vaccine) 0.5 ml IM .ONCE ONE Stop: 06/24/17 14:01 Rosuvastatin Calcium (Crestor) 5 mg PO [facility] Last Admin: 06/21/17 21:29 Dose: 5 mg Tamsulosin HCl (Flomax) 0.4 mg PO DAILY [facility] - Labs Labs: 06/22/17 07:16 06/22/17 07:16 - Constitutional Appears: Non-toxic, No Acute Distress - Head Exam Head Exam: ATRAUMATIC, NORMAL INSPECTION - Eye Exam Eye Exam: EOMI, Normal appearance - ENT Exam ENT Exam: Mucous Membranes Dry - Respiratory Exam Respiratory Exam: NORMAL BREATHING PATTERN - Cardiovascular Exam Cardiovascular Exam: REGULAR RHYTHM, +S1, +S2 - GI/Abdominal Exam GI & Abdominal Exam: Soft, Tenderness, Normal Bowel Sounds. absent: Distended - Extremities Exam Extremities Exam: Full ROM, Normal Inspection. absent: Pedal Edema - Back Exam Back Exam: CVA tenderness (L) - Neurological Exam Neurological Exam: Alert, Awake, Oriented x3 - Psychiatric Exam Psychiatric exam: Normal Affect, Normal Mood - Skin Skin Exam: Intact, Normal Color, Warm Assessment and Plan - Assessment and Plan (Free Text) Assessment: Pyelonephritis UA shows positive nitrates, 3+ leukocyte esterase, 3+ blood, 2+ protein WBC decreasing on 06/22 to 18.2 and 2 bands WBC: 22.6, 11 bands on 04/21 f/u urine cultures blood cultures: gram neg darleen Ceftriaxone given in ED One dose tobramycin given on 06/21/17 Merrem 1gm q8h (started on 06/21/17) Vanco 1gm q12h (started on 06/21/17) NS 100 cc/hr CT abdomen shows mild left hydronephrosis and perinephric stranding. Suspect recently passed 4 mm calculus, which is now within the bladder. Tylenol prn History of Nephrolithiasis Bilateral nephrolithiasis seen on CT abdomen/pelvis Flomax .4mg po daily Patient to continue straining urine for stone Patient's urologist Dr. Bennett consulted, help appreciated. History of Hyperlipidemia Simvastatin is NF started Crestor 5 mg PO HS Triglycerides: 36 Cholesterol: 141 LDL: 63 HDL: 57 Hypokalemia K: 3.2 40kdur given continue to monitor Prophylactic Measures Patient advanced to regular diet Zofran 4 mg IV prn Heparin 5000 SC Q8H Protonix 40 mg PO daily <Wolfgang Hoff - Last Filed: 06/22/17 13:27> Objective - Vital Signs/Intake and Output Vital Signs (last 24 hours): Temp Pulse Resp BP Pulse Ox 98.3 F 95 H 20 124/80 96 06/22/17 10:27 06/22/17 07:40 06/22/17 07:40 06/22/17 07:40 06/22/17 07:40 Intake and Output: 06/22/17 06/22/17 06:59 18:59 Intake Total 1520 Balance 1520 - Medications Medications: Current Medications Acetaminophen (Tylenol 325mg Tab) 650 mg PO Q6 PRN PRN Reason: fever, mild pain Last Admin: 06/22/17 09:27 Dose: 650 mg Heparin Sodium (Porcine) (Heparin) 5,000 units SC Q8 [facility] Last Admin: 06/22/17 13:20 Dose: 5,000 units Sodium Chloride (Sodium Chloride 0.9%) 1,000 mls @ 100 mls/hr IV .Q10H [facility] Last Admin: 06/21/17 21:03 Dose: Not Given Meropenem 1 gm/ Sodium (Chloride) 100 mls @ 100 mls/hr IVPB Q8H [facility] Last Admin: 06/22/17 11:00 Dose: 100 mls/hr Vancomycin/Sodium Chloride (Vancomycin 1 Gm/Ns 200 Ml) 1 gm in 200 mls @ 133.333 mls/hr IVPB Q12H [facility] Stop: 06/26/17 13:01 Last Admin: 06/22/17 13:20 Dose: 133.333 mls/hr Ondansetron HCl (Zofran Inj) 4 mg IVP Q6 PRN PRN Reason: Nausea/Vomiting Last Admin: 06/22/17 08:17 Dose: 4 mg Pantoprazole Sodium (Protonix Ec Tab) 40 mg PO DAILY [facility] Last Admin: 06/22/17 10:56 Dose: 40 mg Pneumococcal Polyvalent Vaccine (Pneumovax 23 Vaccine) 0.5 ml IM .ONCE ONE Stop: 06/24/17 14:01 Rosuvastatin Calcium (Crestor) 5 mg PO [facility] Last Admin: 06/21/17 21:29 Dose: 5 mg Tamsulosin HCl (Flomax) 0.4 mg PO DAILY [facility] Last Admin: 06/22/17 10:56 Dose: 0.4 mg - Labs Labs: 06/22/17 07:16 06/22/17 07:16 Attending/Attestation - Attestation I have personally seen and examined this patient.: Yes I have fully participated in the care of the patient.: Yes I have reviewed all pertinent clinical information, including history, physical exam and plan: Yes Notes (Text): Patient was seen and examined Has fever spikes,c/o nausea Blood culture possible for gram negative bacteremia continue Meropenem and vanco,follow c/s ID consult and urologist consult appreciated plan discussed with the resident and I agree with the documentation of assessment and the plan 06/22/17 13:25
[2017-06-22] MEDS: Pantoprazole 40 mg EC Tab PO SCH (10:56)
[2017-06-22] MEDS ORDERED: Potassium Chloride 20 mEq ER Tab PO ONE ×2 (11:31→13:15)
[2017-06-22] MEDS ORDERED: Aluminum Hydroxide/Magnesium Hydroxide Susp (30 mL) PO STA (13:33)
[2017-06-22] MEDS: Sodium Chloride 0.9% 1,000 ML IV SCH ×2 (16:23→16:27)
[2017-06-23] MEDS: Vancomycin 1 gm/NS 200 ml 1 GM/200 ML BAG IVPB SCH ×2 (01:00→12:24)
[2017-06-23] MEDS: Meropenem 1 GM in Sodium Chloride 0.9% 100 ML IVPB SCH ×2 (03:00→09:50)
[2017-06-23 07:28] LABS: BASO % 0.2 % (0.0-2.0); EOS # 0.1 K/uL (0.0-0.7); EOS % 0.8 % (0.0-4.0); HEMOGLOBIN 10.5 g/dL (11.0-16.0); LYMPH # 1.1 K/uL (1.0-4.3); MEAN CELL VOLUME 93.6 fL (81.0-99.0); MEAN CORPUSCULAR HEMOGLOBIN 32.1 pg (27.0-31.0); MEAN CORPUSCULAR HGB CONC 34.3 g/dL (33.0-37.0); MONO # 0.6 K/uL (0.0-0.8); MONO % 4.6 % (0.0-10.0); NEUT % 86.4 % (50.0-75.0); PLATELET COUNT 159 K/uL (130-400); RBC 3.29 Mil/uL (3.80-5.20); RED CELL DISTRIBUTION WIDTH 12.9 % (11.5-14.5); WHITE BLOOD COUNT 13.9 K/uL (4.8-10.8)
[2017-06-23 08:34] LABS: ALBUMIN 3.2 g/dL (3.5-5.0); ALT/SGPT 32 U/L (9-52); AST/SGOT 20 U/L (14-36); BLOOD UREA NITROGEN 10 mg/dL (7-17); CALCIUM 7.9 mg/dl (8.6-10.4); GFR AFRICAN-AMERICAN > 60; GFR NON-AFRICAN AMERICAN > 60; MAGNESIUM 1.8 mg/dL (1.6-2.3)
[2017-06-23 08:53] LABS: ANISOCYTOSIS SLIGHT; BANDS 4 % (0-2); HYPOCHROMIC SLIGHT; LYMPHOCYTE 6 % (20-40); MONOCYTE 4 % (0-10); NEUTROPHIL 86 % (50-75); PLATELET ESTIMATE NORMAL (NORMAL); POIKILOCYTOSIS SLIGHT; TOTAL CELLS COUNTED 100
[2017-06-23] MEDS ORDERED: Potassium Chloride 20 mEq ER Tab PO ONE (09:15)
[2017-06-23] MEDS: Pantoprazole 40 mg EC Tab PO SCH (09:49)
[2017-06-23] MEDS ORDERED: Potassium Chloride 20 mEq ER Tab PO SCH (10:00)
[2017-06-23] MEDS: Saccharomyces Boulardi 250 mg Cap PO SCH (10:39)
--- NOTE | 2017-06-23 14:11 | CP.PCM.PN ---
<Talia Matos - Last Filed: 06/23/17 14:09> Subjective - Date & Time of Evaluation Date of Evaluation: 06/23/17 Time of Evaluation: 07:00 - Subjective Subjective: PGY1- Medicine Note- Dr. Hoff Patient seen and examined at bedside and in no acute distress. Patient says she has not vomited, but is still having nausea. Patient tried to each lunch yesterday but had nausea after a few bites. Patient is also still having abdominal pain which she says is better than yesterday and rates it 5/10. Patient has some low left sided flank pain. Patient had two episodes of loose stools yesterday. Patient denies any shortness of breath or chest pain. Objective - Vital Signs/Intake and Output Vital Signs (last 24 hours): Temp Pulse Resp BP Pulse Ox 98.4 F 82 20 145/86 100 06/23/17 07:00 06/23/17 07:00 06/23/17 07:00 06/23/17 07:00 06/23/17 07:00 Intake and Output: 06/23/17 06/23/17 06:59 18:59 Intake Total 2020 Balance 2020 - Medications Medications: Current Medications Acetaminophen (Tylenol 325mg Tab) 650 mg PO Q6 PRN PRN Reason: fever, mild pain Last Admin: 06/23/17 08:52 Dose: 650 mg Heparin Sodium (Porcine) (Heparin) 5,000 units SC Q8 [facility] Last Admin: 06/23/17 13:40 Dose: 5,000 units Meropenem 1 gm/ Sodium (Chloride) 100 mls @ 100 mls/hr IVPB Q8H [facility] Last Admin: 06/23/17 09:50 Dose: 100 mls/hr Vancomycin/Sodium Chloride (Vancomycin 1 Gm/Ns 200 Ml) 1 gm in 200 mls @ 133.333 mls/hr IVPB Q12H [facility] Stop: 06/26/17 13:01 Last Admin: 06/23/17 12:24 Dose: 133.333 mls/hr Potassium Chloride 10 meq/ (Sodium Chloride) 1,005 mls @ 100 mls/hr IV .Q10H3M [facility] Last Admin: 06/23/17 12:23 Dose: 100 mls/hr Ondansetron HCl (Zofran Inj) 4 mg IVP Q6 PRN PRN Reason: Nausea/Vomiting Last Admin: 06/22/17 16:20 Dose: 4 mg Pantoprazole Sodium (Protonix Ec Tab) 40 mg PO DAILY [facility] Last Admin: 06/23/17 09:49 Dose: 40 mg Pneumococcal Polyvalent Vaccine (Pneumovax 23 Vaccine) 0.5 ml IM .ONCE ONE Stop: 06/24/17 14:01 Rosuvastatin Calcium (Crestor) 5 mg PO HS [facility] Last Admin: 06/22/17 22:04 Dose: 5 mg Saccharomyces Boulardii (Florastor) 250 mg PO DAILY [facility] Last Admin: 06/23/17 10:39 Dose: 250 mg Tamsulosin HCl (Flomax) 0.4 mg PO DAILY [facility] Last Admin: 06/23/17 09:48 Dose: 0.4 mg - Labs Labs: 06/23/17 07:13 06/23/17 07:13 - Constitutional Appears: Non-toxic - Head Exam Head Exam: ATRAUMATIC, NORMAL INSPECTION, NORMOCEPHALIC - Eye Exam Eye Exam: EOMI, Normal appearance - ENT Exam ENT Exam: Mucous Membranes Moist - Respiratory Exam Respiratory Exam: Clear to Ausculation Bilateral, NORMAL BREATHING PATTERN - Cardiovascular Exam Cardiovascular Exam: REGULAR RHYTHM, +S1, +S2 - GI/Abdominal Exam GI & Abdominal Exam: Soft, Tenderness, Normal Bowel Sounds - Extremities Exam Extremities Exam: Full ROM, Normal Inspection. absent: Pedal Edema - Neurological Exam Neurological Exam: Alert, Awake, Oriented x3 - Psychiatric Exam Psychiatric exam: Normal Affect, Normal Mood - Skin Skin Exam: Intact, Normal Color, Warm Assessment and Plan - Assessment and Plan (Free Text) Assessment: Pyelonephritis WBC decreased to 13.9 from 18.2 UA shows positive nitrates, 3+ leukocyte esterase, 3+ blood, 2+ protein WBC decreasing on 06/22 to 18.2 and 2 bands WBC: 22.6, 11 bands on 04/21 urine culture: e. coli blood cultures: e. coli Ceftriaxone given in ED One dose tobramycin given on 06/21/17 Merrem 1gm q8h (started on 06/21/17) Vanco 1gm q12h (started on 06/21/17) NS with 10meq KCL at 100 cc/hr CT abdomen shows mild left hydronephrosis and perinephric stranding. Suspect recently passed 4 mm calculus, which is now within the bladder. Tylenol prn History of Nephrolithiasis Bilateral nephrolithiasis seen on CT abdomen/pelvis Flomax .4mg po daily Patient to continue straining urine for stone Patient's urologist Dr. Bennett consulted, help appreciated. History of Hyperlipidemia Simvastatin is NF started Crestor 5 mg PO HS Triglycerides: 36 Cholesterol: 141 LDL: 63 HDL: 57 Diarrhea Florastor 250 mg po daily f/u c dif toxin Hypokalemia K: 3.2 40kdur given NS with 10meq KCL at 100 cc/hr continue to monitor Prophylactic Measures Patient advanced to regular diet Zofran 4 mg IV prn Heparin 5000 SC Q8H Protonix 40 mg PO daily <Wolfgang Hoff - Last Filed: 06/23/17 18:04> Objective - Vital Signs/Intake and Output Vital Signs (last 24 hours): Temp Pulse Resp BP Pulse Ox 98.4 F 82 20 145/86 100 06/23/17 07:00 06/23/17 07:00 06/23/17 07:00 06/23/17 07:00 06/23/17 07:00 Intake and Output: 06/23/17 06/23/17 06:59 18:59 Intake Total 2020 Balance 2020 - Medications Medications: Current Medications Acetaminophen (Tylenol 325mg Tab) 650 mg PO Q6 PRN PRN Reason: fever, mild pain Last Admin: 06/23/17 16:21 Dose: 650 mg Heparin Sodium (Porcine) (Heparin) 5,000 units SC Q8 [facility] Last Admin: 06/23/17 13:40 Dose: 5,000 units Potassium Chloride 10 meq/ (Sodium Chloride) 1,005 mls @ 100 mls/hr IV .Q10H3M [facility] Last Admin: 06/23/17 12:23 Dose: 100 mls/hr Ciprofloxacin (Cipro 400mg/200ml Dsw) 400 mg in 200 mls @ 133 mls/hr IVPB Q12H [facility] Lactobacillus Acidophilus (Bacid Acidophilus) 1 cap PO BID [facility] Ondansetron HCl (Zofran Inj) 4 mg IVP Q6 PRN PRN Reason: Nausea/Vomiting Last Admin: 06/22/17 16:20 Dose: 4 mg Pantoprazole Sodium (Protonix Ec Tab) 40 mg PO DAILY [facility] Last Admin: 06/23/17 09:49 Dose: 40 mg Pneumococcal Polyvalent Vaccine (Pneumovax 23 Vaccine) 0.5 ml IM .ONCE ONE Stop: 06/24/17 14:01 Rosuvastatin Calcium (Crestor) 5 mg PO [facility] Last Admin: 06/22/17 22:04 Dose: 5 mg Saccharomyces Boulardii (Florastor) 250 mg PO DAILY [facility] Last Admin: 06/23/17 10:39 Dose: 250 mg Tamsulosin HCl (Flomax) 0.4 mg PO DAILY [facility] Last Admin: 06/23/17 09:48 Dose: 0.4 mg - Labs Labs: 06/23/17 07:13 06/23/17 07:13 Attending/Attestation - Attestation I have personally seen and examined this patient.: Yes I have fully participated in the care of the patient.: Yes I have reviewed all pertinent clinical information, including history, physical exam and plan: Yes Notes (Text): Patient was seen and examined this morning I agree with the documentation of the assessment and the plan Blood c/s report -Sensitive for cipro off merrem and vanco,started on cipro
--- NOTE | 2017-06-23 15:38 | CP.PCM.PN ---
Subjective - Date & Time of Evaluation Date of Evaluation: 06/23/17 Time of Evaluation: 03:00 - Subjective Subjective: dictated Objective - Vital Signs/Intake and Output Vital Signs (last 24 hours): Temp Pulse Resp BP Pulse Ox 98.4 F 82 20 145/86 100 06/23/17 07:00 06/23/17 07:00 06/23/17 07:00 06/23/17 07:00 06/23/17 07:00 Intake and Output: 06/23/17 06/23/17 06:59 18:59 Intake Total 2019 Balance 2019 - Medications Medications: Current Medications Acetaminophen (Tylenol 325mg Tab) 650 mg PO Q6 PRN PRN Reason: fever, mild pain Last Admin: 06/23/17 08:52 Dose: 650 mg Heparin Sodium (Porcine) (Heparin) 5,000 units SC Q8 [facility] Last Admin: 06/23/17 13:40 Dose: 5,000 units Potassium Chloride 10 meq/ (Sodium Chloride) 1,005 mls @ 100 mls/hr IV .Q10H3M [facility] Last Admin: 06/23/17 12:23 Dose: 100 mls/hr Ciprofloxacin (Cipro 400mg/200ml Dsw) 400 mg in 200 mls @ 133 mls/hr IVPB Q12H [facility] Lactobacillus Acidophilus (Bacid Acidophilus) 1 cap PO BID [facility] Ondansetron HCl (Zofran Inj) 4 mg IVP Q6 PRN PRN Reason: Nausea/Vomiting Last Admin: 06/22/17 16:20 Dose: 4 mg Pantoprazole Sodium (Protonix Ec Tab) 40 mg PO DAILY [facility] Last Admin: 06/23/17 09:49 Dose: 40 mg Pneumococcal Polyvalent Vaccine (Pneumovax 23 Vaccine) 0.5 ml IM .ONCE ONE Stop: 06/24/17 14:01 Rosuvastatin Calcium (Crestor) 5 mg PO HS [facility] Last Admin: 06/22/17 22:04 Dose: 5 mg Saccharomyces Boulardii (Florastor) 250 mg PO DAILY [facility] Last Admin: 06/23/17 10:39 Dose: 250 mg Tamsulosin HCl (Flomax) 0.4 mg PO DAILY [facility] Last Admin: 06/23/17 09:48 Dose: 0.4 mg - Labs Labs: 06/23/17 07:13 06/23/17 07:13
[2017-06-23] MEDS: Lactobacillus Acidophilus 500 MU Cap PO SCH (18:28)
[2017-06-23] MEDS: Ciprofloxacin 400mg/200ml D5W 400 MG/200 ML BAG IVPB SCH (18:28)
--- NOTE | 2017-06-23 20:42 | PN ---
DATE: 06/23/2017 SUBJECTIVE: Patient is seen today. Patient is not vomiting. She does complain of some diarrhea and stool has been collected for C. diff. She denies any abdominal pain. It is better now and her blood culture and urine culture all came out sensitive to Cipro and she has E. coli in the blood as well as in the urine, and she did come in with septicemia, and I would also order an echo, but the thing is Cipro sensitive; her white count is dropping. She denies any other complaints. She denies any dysuria or hematuria. PHYSICAL EXAMINATION: VITAL SIGNS: Her T-max is 98.4, pulse 82, blood pressure 145/86, respirations are 20. HEENT: Head is atraumatic and normocephalic. NECK: Supple. LUNGS: Clear. No crackles or rales present. HEART: S1 and S2 is regular. ABDOMEN: Soft, nontender, no guarding, no rigidity present. No CVA tenderness present. EXTREMITIES: Have no edema, clubbing, or cyanosis. LABORATORY DATA: White count is 13.9, hemoglobin 10.5, hematocrit 30.8, platelet count is 159. Sodium is 137, potassium 3.2, chloride 105, CO2 is 27. She needs a supplement of potassium as her potassium is low. I hope they supplemented that. She is getting a replacement at this time. So, at this time the micro labs show E. coli and E. coli is sensitive to Cipro, and her x-ray report shows mild left hydronephrosis, suspect recently passed 4-mm stone, which she passed and bilateral nephrolithiasis and they cannot exclude concomitant pyelonephritis. Remainder of the findings remains above. ASSESSMENT AND PLAN: So, she does have what looks like pyelonephritis. She has Escherichia coli in the blood as well as in the urine and has had complicated urinary tract infection with renal stones at this time. She was seen by the urologist. I will also make sure we get an echo done. For Gram-negative septicemia, we will repeat the blood cultures and the urine culture. If they become negative, then she could go home on Cipro p.o. and she needs to follow up with the urologist as an outpatient as she does have nephrolithiasis and we will follow echo report and also get a urine culture and blood culture report and we will switch to Cipro and put her on Bacid at this time. She has been on antibiotic since the 06/21 and today is only the third day, so will need 11 more days of Cipro. We will follow up. Dunia Clarke MD
[2017-06-23 21:13] LABS: URINE BILIRUBIN NEGATIVE (NEGATIVE); URINE BLOOD 2+ (NEGATIVE); URINE CLARITY Clear (Clear); URINE COLOR Straw (YELLOW); URINE GLUCOSE (UA) NORMAL (Normal); URINE LEUKOCYTE ESTERASE TRACE Leu/uL (Negative); URINE NITRATE NEGATIVE (NEGATIVE); URINE PROTEIN NEGATIVE (NEGATIVE); URINE UROBILINOGEN NORMAL mg/dL (0.2-1.0)
[2017-06-24] MEDS: Ciprofloxacin 400mg/200ml D5W 400 MG/200 ML BAG IVPB SCH ×2 (05:22→16:35)
[2017-06-24 08:01] LABS: BASO % 0.4 % (0.0-2.0); EOS # 0.1 K/uL (0.0-0.7); LYMPH # 1.3 K/uL (1.0-4.3); LYMPH % 13.5 % (20.0-40.0); MEAN CELL VOLUME 92.8 fL (81.0-99.0); MEAN CORPUSCULAR HEMOGLOBIN 32.1 pg (27.0-31.0); MEAN CORPUSCULAR HGB CONC 34.6 g/dL (33.0-37.0); MEAN PLATELET VOLUME 9.1 fL (7.2-11.7); MONO # 0.6 K/uL (0.0-0.8); MONO % 6.4 % (0.0-10.0); NEUT # 7.7 K/uL (1.8-7.0); NEUT % 78.7 % (50.0-75.0); RBC 3.11 Mil/uL (3.80-5.20); RED CELL DISTRIBUTION WIDTH 12.8 % (11.5-14.5); WHITE BLOOD COUNT 9.8 K/uL (4.8-10.8)
[2017-06-24 08:31] LABS: ALBUMIN 3.1 g/dL (3.5-5.0); ALT/SGPT 35 U/L (9-52); AST/SGOT 21 U/L (14-36); BLOOD UREA NITROGEN 6 mg/dL (7-17); CALCIUM 7.7 mg/dl (8.6-10.4); GFR AFRICAN-AMERICAN > 60; GFR NON-AFRICAN AMERICAN > 60; MAGNESIUM 1.7 mg/dL (1.6-2.3)
[2017-06-24] MEDS ORDERED: Potassium Chloride 20 mEq ER Tab PO ONE ×2 (09:22→12:30)
[2017-06-24] MEDS: Pantoprazole 40 mg EC Tab PO SCH (09:34)
[2017-06-24] MEDS: Lactobacillus Acidophilus 500 MU Cap PO SCH ×2 (09:34→18:07)
[2017-06-24] MEDS: Saccharomyces Boulardi 250 mg Cap PO SCH (09:34)
[2017-06-24] MEDS: Potassium & Sodium Phosphate PO SCH ×2 (13:09→18:08)
--- NOTE | 2017-06-24 13:41 | CARD ---
APPROVED REPORT EXAM: Two-dimensional and M-mode echocardiogram with Doppler and color Doppler. Other Information Quality : [employer] : INDICATION E COLI SEPTIEMIA M-Mode DIMENSIONS RVDd2.13 (2.1-3.2cm)Left Atrium (MM)3.70 (2.5-4.0cm) IVSd1.00 (0.7-1.1cm)Aortic Root2.40 (2.2-3.7cm) LVDd4.74 (4.0-5.6cm)Aortic Cusp Exc.1.37 (1.5-2.0cm) PWd0.97 (0.7-1.1cm)FS (%) 35 % LVDs3.10 (2.0-3.8cm)LVEF (%)64 (>50%) Mitral Valve MV E Esaoqyrw417.4cm/sMV A Pszulosf52.8cm/sE/A ratio1.2 TDI E/Lateral E'0.0E/Medial E'0.0 Tricuspid Valve TR Peak [id number]/sTR Peak [id number] LEFT VENTRICLE The left ventricle is normal size. There is normal left ventricular wall thickness. The left ventricular systolic function is normal. The left ventricular ejection fraction is within the normal range. There is normal LV segmental wall motion. The left ventricular diastolic function is normal. RIGHT VENTRICLE The right ventricle is normal size. There is normal right ventricular wall thickness. The right ventricular systolic function is normal. ATRIA The left atrium size is normal. The right atrium size is normal. AORTIC VALVE The aortic valve is normal in structure. There is no aortic valvular vegetation. MITRAL VALVE The mitral valve is normal in structure. There is no mitral valve regurgitation noted. TRICUSPID VALVE The tricuspid valve is normal in structure. There is physiological trace tricuspid regurgitation. Right ventricular systolic pressure is estimated at less than 30 mmHg. PULMONIC VALVE The pulmonary valve is normal in structure. There is no pulmonic valvular regurgitation. GREAT VESSELS The aortic root is normal in size. The IVC is plethoric. PERICARDIAL EFFUSION There is no pericardial effusion. <Conclusion> Normal bi-ventricular function. No valvular abnormality noted. No pericardial effusion.
[2017-06-24] MEDS ORDERED: Pneumococcal 23-Valent Vaccine IM ONE (14:00)
--- NOTE | 2017-06-24 15:29 | CP.PCM.PN ---
<Talia Matos - Last Filed: 06/24/17 15:36> Subjective - Date & Time of Evaluation Date of Evaluation: 06/24/17 Time of Evaluation: 07:00 - Subjective Subjective: PGY1- Medicine Note- Dr. Hoff Patient seen and examined at bedside and in no acute distress. Patient says she has not vomited, and is feeling less nauseous. Patient is tolerating her food. Patient says her abdominal pain is very minimal today. Patient is tearful and wants to go home. Patient denies any shortness of breath or chest pain. Objective - Vital Signs/Intake and Output Vital Signs (last 24 hours): Temp Pulse Resp BP Pulse Ox 99.0 F 81 20 127/80 96 06/24/17 09:31 06/24/17 09:31 06/24/17 09:31 06/24/17 09:31 06/24/17 09:31 - Medications Medications: Current Medications Acetaminophen (Tylenol 325mg Tab) 650 mg PO Q6 PRN PRN Reason: fever, mild pain Last Admin: 06/23/17 16:21 Dose: 650 mg Heparin Sodium (Porcine) (Heparin) 5,000 units SC Q8 [facility] Last Admin: 06/24/17 13:09 Dose: 5,000 units Potassium Chloride 10 meq/ (Sodium Chloride) 1,005 mls @ 100 mls/hr IV .Q10H3M [facility] Last Admin: 06/24/17 06:03 Dose: 100 mls/hr Ciprofloxacin (Cipro 400mg/200ml Dsw) 400 mg in 200 mls @ 133 mls/hr IVPB Q12H [facility] Last Admin: 06/24/17 05:22 Dose: 133 mls/hr Lactobacillus Acidophilus (Bacid Acidophilus) 1 cap PO BID [facility] Last Admin: 06/24/17 09:34 Dose: 1 cap Ondansetron HCl (Zofran Inj) 4 mg IVP Q6 PRN PRN Reason: Nausea/Vomiting Last Admin: 06/22/17 16:20 Dose: 4 mg Pantoprazole Sodium (Protonix Ec Tab) 40 mg PO DAILY [facility] Last Admin: 06/24/17 09:34 Dose: 40 mg Potassium Phos/Sodium Phos (Neutra-Phos) 1 pkt PO BID [facility] Last Admin: 06/24/17 13:09 Dose: 1 pkt Rosuvastatin Calcium (Crestor) 5 mg PO [facility] Last Admin: 06/23/17 21:53 Dose: 5 mg Saccharomyces Boulardii (Florastor) 250 mg PO DAILY [facility] Last Admin: 06/24/17 09:34 Dose: 250 mg Tamsulosin HCl (Flomax) 0.4 mg PO DAILY [facility] Last Admin: 06/24/17 09:34 Dose: 0.4 mg - Labs Labs: 06/24/17 07:51 06/24/17 07:51 - Additional Findings Additional findings: - Constitutional Appears: Non-toxic - Head Exam Head Exam: ATRAUMATIC, NORMAL INSPECTION, NORMOCEPHALIC - Eye Exam Eye Exam: EOMI, Normal appearance - ENT Exam ENT Exam: Mucous Membranes Moist - Respiratory Exam Respiratory Exam: Clear to Ausculation Bilateral, NORMAL BREATHING PATTERN - Cardiovascular Exam Cardiovascular Exam: REGULAR RHYTHM, +S1, +S2 - GI/Abdominal Exam GI & Abdominal Exam: Soft, Tenderness, Normal Bowel Sounds - Extremities Exam Extremities Exam: Full ROM, Normal Inspection. absent: Pedal Edema - Neurological Exam Neurological Exam: Alert, Awake, Oriented x3 - Psychiatric Exam Psychiatric exam: Normal Affect, Normal Mood - Skin Skin Exam: Intact, Normal Color, Warm Assessment and Plan - Assessment and Plan (Free Text) Assessment: Pyelonephritis WBC decreased to 9.8 --13.9 -- 18.2 UA shows positive nitrates, 3+ leukocyte esterase, 3+ blood, 2+ protein WBC decreasing on 06/22 to 18.2 and 2 bands WBC: 22.6, 11 bands on 04/21 urine culture: e. coli blood cultures: e. coli f/u repeat blood cultures from 06/23 Ceftriaxone given in ED One dose tobramycin given on 06/21/17 Merrem 1gm q8h (started on 06/21/17) Vanco 1gm q12h (started on 06/21/17) NS with 10meq KCL at 100 cc/hr CT abdomen shows mild left hydronephrosis and perinephric stranding. Suspect recently passed 4 mm calculus, which is now within the bladder. ID consulted, Dr. Clarke, help appreciated History of Nephrolithiasis Bilateral nephrolithiasis seen on CT abdomen/pelvis Flomax .4mg po daily Patient to continue straining urine for stone Patient's urologist Dr. Bennett consulted, help appreciated. History of Hyperlipidemia Simvastatin is NF started Crestor 5 mg PO HS Triglycerides: 36 Cholesterol: 141 LDL: 63 HDL: 57 Diarrhea Florastor 250 mg po daily f/u c dif toxin Hypokalemia K: 3.5 40kdur given NS with 10meq KCL at 100 cc/hr continue to monitor Prophylactic Measures Patient advanced to regular diet Zofran 4 mg IV prn Heparin 5000 SC Q8H Protonix 40 mg PO daily <Wolfgang Hoff - Last Filed: 06/24/17 15:51> Objective - Vital Signs/Intake and Output Vital Signs (last 24 hours): Temp Pulse Resp BP Pulse Ox 99.0 F 81 20 127/80 96 06/24/17 09:31 06/24/17 09:31 06/24/17 09:31 06/24/17 09:31 06/24/17 09:31 - Medications Medications: Current Medications Acetaminophen (Tylenol 325mg Tab) 650 mg PO Q6 PRN PRN Reason: fever, mild pain Last Admin: 06/23/17 16:21 Dose: 650 mg Heparin Sodium (Porcine) (Heparin) 5,000 units SC Q8 [facility] Last Admin: 06/24/17 13:09 Dose: 5,000 units Potassium Chloride 10 meq/ (Sodium Chloride) 1,005 mls @ 100 mls/hr IV .Q10H3M [facility] Last Admin: 06/24/17 06:03 Dose: 100 mls/hr Ciprofloxacin (Cipro 400mg/200ml Dsw) 400 mg in 200 mls @ 133 mls/hr IVPB Q12H [facility] Last Admin: 06/24/17 05:22 Dose: 133 mls/hr Lactobacillus Acidophilus (Bacid Acidophilus) 1 cap PO BID [facility] Last Admin: 06/24/17 09:34 Dose: 1 cap Ondansetron HCl (Zofran Inj) 4 mg IVP Q6 PRN PRN Reason: Nausea/Vomiting Last Admin: 06/22/17 16:20 Dose: 4 mg Pantoprazole Sodium (Protonix Ec Tab) 40 mg PO DAILY [facility] Last Admin: 06/24/17 09:34 Dose: 40 mg Potassium Phos/Sodium Phos (Neutra-Phos) 1 pkt PO BID [facility] Last Admin: 06/24/17 13:09 Dose: 1 pkt Rosuvastatin Calcium (Crestor) 5 mg PO HS [facility] Last Admin: 06/23/17 21:53 Dose: 5 mg Saccharomyces Boulardii (Florastor) 250 mg PO DAILY [facility] Last Admin: 06/24/17 09:34 Dose: 250 mg Tamsulosin HCl (Flomax) 0.4 mg PO DAILY [facility] Last Admin: 06/24/17 09:34 Dose: 0.4 mg - Labs Labs: 06/24/17 07:51 06/24/17 07:51 Attending/Attestation - Attestation I have personally seen and examined this patient.: Yes I have fully participated in the care of the patient.: Yes I have reviewed all pertinent clinical information, including history, physical exam and plan: Yes Notes (Text): Patient was seen and examined E Coli bacteremia on cipro follow repeat culture report (06/22/2017) continue antibiotics d/w Resident I agree with the documentation of the assessment and the plan 06/24/17 15:51
[2017-06-25] MEDS: Ciprofloxacin 400mg/200ml D5W 400 MG/200 ML BAG IVPB SCH ×2 (04:20→16:32)
[2017-06-25 08:47] LABS: BASO % 0.5 % (0.0-2.0); EOS # 0.2 K/uL (0.0-0.7); EOS % 1.7 % (0.0-4.0); HEMOGLOBIN 10.1 g/dL (11.0-16.0); LYMPH # 1.5 K/uL (1.0-4.3); MEAN CELL VOLUME 93.4 fL (81.0-99.0); MEAN CORPUSCULAR HEMOGLOBIN 32.4 pg (27.0-31.0); MEAN CORPUSCULAR HGB CONC 34.7 g/dL (33.0-37.0); MEAN PLATELET VOLUME 9.1 fL (7.2-11.7); MONO # 0.9 K/uL (0.0-0.8); NEUT # 6.4 K/uL (1.8-7.0); NEUT % 70.8 % (50.0-75.0); RBC 3.11 Mil/uL (3.80-5.20); RED CELL DISTRIBUTION WIDTH 12.9 % (11.5-14.5); WHITE BLOOD COUNT 9.1 K/uL (4.8-10.8)
[2017-06-25 09:07] LABS: ALB/GLOB RATIO 0.9 (1.0-2.1); ALBUMIN 3.2 g/dL (3.5-5.0); ALT/SGPT 52 U/L (9-52); AST/SGOT 45 U/L (14-36); BLOOD UREA NITROGEN 6 mg/dL (7-17); CALCIUM 7.6 mg/dl (8.6-10.4); GFR AFRICAN-AMERICAN > 60; GFR NON-AFRICAN AMERICAN > 60; MAGNESIUM 1.7 mg/dL (1.6-2.3)
[2017-06-25] MEDS: Saccharomyces Boulardi 250 mg Cap PO SCH (09:11)
[2017-06-25] MEDS: Potassium & Sodium Phosphate PO SCH ×2 (09:11→17:56)
[2017-06-25] MEDS: Pantoprazole 40 mg EC Tab PO SCH (09:11)
[2017-06-25] MEDS: Lactobacillus Acidophilus 500 MU Cap PO SCH ×2 (09:11→17:56)
[2017-06-25] MEDS: guaiFENesin 100 mg/5 ml Syrup UD PO PRN ×3 (10:17→19:07)
--- NOTE | 2017-06-25 14:30 | CP.PCM.PN ---
Subjective - Date & Time of Evaluation Date of Evaluation: 06/25/17 Time of Evaluation: 10:40 - Subjective Subjective: Seen and examined,lying comfortable,no pain,no fever Objective - Vital Signs/Intake and Output Vital Signs (last 24 hours): Temp Pulse Resp BP Pulse Ox 98.6 F 79 20 121/76 96 06/25/17 09:10 06/25/17 09:10 06/25/17 09:10 06/25/17 09:10 06/25/17 09:10 Intake and Output: 06/25/17 06/25/17 06:59 18:59 Intake Total 2400 Balance 2400 - Medications Medications: Current Medications Acetaminophen (Tylenol 325mg Tab) 650 mg PO Q6 PRN PRN Reason: fever, mild pain Last Admin: 06/25/17 08:12 Dose: 650 mg Guaifenesin (Robitussin) 100 mg PO Q4H PRN PRN Reason: Cough Last Admin: 06/25/17 10:17 Dose: 100 mg Heparin Sodium (Porcine) (Heparin) 5,000 units SC Q8 [facility] Last Admin: 06/25/17 05:22 Dose: 5,000 units Potassium Chloride 10 meq/ (Sodium Chloride) 1,005 mls @ 100 mls/hr IV .Q10H3M [facility] Last Admin: 06/25/17 05:22 Dose: 100 mls/hr Ciprofloxacin (Cipro 400mg/200ml Dsw) 400 mg in 200 mls @ 133 mls/hr IVPB Q12H [facility] Last Admin: 06/25/17 04:20 Dose: 133 mls/hr Lactobacillus Acidophilus (Bacid Acidophilus) 1 cap PO BID [facility] Last Admin: 06/25/17 09:11 Dose: 1 cap Ondansetron HCl (Zofran Inj) 4 mg IVP Q6 PRN PRN Reason: Nausea/Vomiting Last Admin: 06/22/17 16:20 Dose: 4 mg Pantoprazole Sodium (Protonix Ec Tab) 40 mg PO DAILY [facility] Last Admin: 06/25/17 09:11 Dose: 40 mg Potassium Phos/Sodium Phos (Neutra-Phos) 1 pkt PO BID [facility] Last Admin: 06/25/17 09:11 Dose: 1 pkt Rosuvastatin Calcium (Crestor) 5 mg PO HS [facility] Last Admin: 06/24/17 21:32 Dose: 5 mg Saccharomyces Boulardii (Florastor) 250 mg PO DAILY [facility] Last Admin: 06/25/17 09:11 Dose: 250 mg Tamsulosin HCl (Flomax) 0.4 mg PO DAILY [facility] Last Admin: 06/25/17 09:11 Dose: 0.4 mg - Labs Labs: 06/25/17 08:39 06/25/17 08:37 - Constitutional Appears: Non-toxic - Head Exam Head Exam: NORMAL INSPECTION - Eye Exam Eye Exam: Normal appearance Pupil Exam: NORMAL ACCOMODATION - ENT Exam ENT Exam: Mucous Membranes Moist - Neck Exam Neck Exam: Full ROM - Respiratory Exam Respiratory Exam: Clear to Ausculation Bilateral, NORMAL BREATHING PATTERN - Cardiovascular Exam Cardiovascular Exam: REGULAR RHYTHM - GI/Abdominal Exam GI & Abdominal Exam: Soft, Normal Bowel Sounds - Extremities Exam Extremities Exam: Full ROM - Back Exam Back Exam: NORMAL INSPECTION - Neurological Exam Neurological Exam: Awake, Oriented x3 - Psychiatric Exam Psychiatric exam: Normal Affect - Skin Skin Exam: Dry Assessment and Plan - Assessment and Plan (Free Text) Plan: 1.Bacteremia/ecoli secondary to UTI urine culture: e. coli blood cultures: e. coli f/u repeat blood cultures from 06/[address] abdomen shows mild left hydronephrosis and perinephric stranding. Suspect recently passed 4 mm calculus, which is now within the bladder. ID consulted, Dr. Clarke, help appreciated continue IV cipro 2.History of Nephrolithiasis Bilateral nephrolithiasis seen on CT abdomen/pelvis Flomax .4mg po daily Patient to continue straining urine for stone Patient's urologist Dr. Bennett consulted, help appreciated. 3.History of Hyperlipidemia Simvastatin is NF started Crestor 5 mg PO HS Triglycerides: 36 Cholesterol: 141 LDL: 63 HDL: 57 4.Diarrhea Florastor 250 mg po daily f/u c dif toxin
[2017-06-25] MEDS ORDERED: Simethicone 40 mg/0.6 ml Liquid (30 ml) PO STA (19:17)
[2017-06-25] MEDS ORDERED: Potassium Chloride 20 mEq/15 ml LIQ UD PO ONE (23:34)
[2017-06-26] MEDS: Ciprofloxacin 400mg/200ml D5W 400 MG/200 ML BAG IVPB SCH (04:31)
[2017-06-26 09:00] VITALS: BP 145/84; PULSE 79; TEMP 98.1; O2SAT 98
[2017-06-26] MEDS: Saccharomyces Boulardi 250 mg Cap PO SCH (09:17)
[2017-06-26] MEDS: guaiFENesin 100 mg/5 ml Syrup UD PO PRN (09:17)
[2017-06-26] MEDS: Pantoprazole 40 mg EC Tab PO SCH (09:17)
[2017-06-26] MEDS: Lactobacillus Acidophilus 500 MU Cap PO SCH (09:18)
[2017-06-26 09:35] LABS: BASO % 0.4 % (0.0-2.0); EOS # 0.2 K/uL (0.0-0.7); EOS % 1.7 % (0.0-4.0); HEMOGLOBIN 11.5 g/dL (11.0-16.0); LYMPH # 1.8 K/uL (1.0-4.3); LYMPH % 16.3 % (20.0-40.0); MEAN CELL VOLUME 92.7 fL (81.0-99.0); MEAN CORPUSCULAR HEMOGLOBIN 30.6 pg (27.0-31.0); MEAN PLATELET VOLUME 7.8 fL (7.2-11.7); MONO # 0.9 K/uL (0.0-0.8); MONO % 7.8 % (0.0-10.0); NEUT # 8.1 K/uL (1.8-7.0); NEUT % 73.8 % (50.0-75.0); RBC 3.75 Mil/uL (3.80-5.20); RED CELL DISTRIBUTION WIDTH 12.9 % (11.5-14.5)
[2017-06-26] MEDS ORDERED: Simethicone 80 mg Chewtab PO PRN (09:40)
[2017-06-26 10:10] LABS: ALBUMIN 3.7 g/dL (3.5-5.0); ALT/SGPT 111 U/L (9-52); AST/SGOT 92 U/L (14-36); BLOOD UREA NITROGEN 7 mg/dL (7-17); CALCIUM 8.6 mg/dl (8.6-10.4); GFR AFRICAN-AMERICAN > 60; GFR NON-AFRICAN AMERICAN > 60; MAGNESIUM 1.6 mg/dL (1.6-2.3)
[2017-06-26] MEDS ORDERED: Potassium Chloride 20 mEq ER Tab PO ONE ×2 (10:30→12:30)
[2017-06-26] MEDS ORDERED: Simethicone 80 mg Chewtab PO ONE (12:30)
--- NOTE | 2017-06-26 17:35 | CP.PCM.DIS ---
<Talia Matos - Last Filed: 06/26/17 17:28> Provider - Provider Date of Admission: 06/21/17 00:13 Attending physician: Wolfgang Hoff MD Primary care physician: Dr. Miguel Ángel Norwood Consults: Dr. Bennett (uro) Dr. Clarke (ID) Time Spent in preparation of Discharge (in minutes): 45 Diagnosis - Discharge Diagnosis (1) Bacteremia Status: Resolved (2) Hyperlipidemia Status: Resolved (3) Acute pyelonephritis Status: Resolved (4) Kidney stones Status: Chronic Hospital Course - Lab Results Lab Results: Micro Results 06/23/17 17:05 Blood-Venous Blood Culture - Preliminary NO GROWTH AFTER 3 DAYS 06/23/17 21:15 Urine,Clean Catch Urine Culture - Final No Growth (<1,000 CFU/ML) 06/20/17 12:03 Blood Blood Culture - Final Escherichia Coli 06/20/17 12:03 Blood Gram Stain - Final 06/20/17 23:09 Urine Urine Culture - Final Escherichia Coli 06/20/17 23:30 Blood Blood Culture - Final Escherichia Coli 06/20/17 23:30 Blood Gram Stain - Final Most Recent Lab Values WBC 11.0 K/uL (4.8-10.8) H 06/26/17 09:22 RBC 3.75 Mil/uL (3.80-5.20) L 06/26/17 09:22 Hgb 11.5 g/dL (11.0-16.0) 06/26/17 09:22 Hct 34.7 % (34.0-47.0) 06/26/17 09:22 MCV 92.7 fL (81.0-99.0) 06/26/17 09:22 MCH 30.6 pg (27.0-31.0) 06/26/17 09:22 MCHC 33.0 g/dL (33.0-37.0) 06/26/17 09:22 RDW 12.9 % (11.5-14.5) 06/26/17 09:22 Plt Count 249 K/uL (130-400) 06/26/17 09:22 MPV 7.8 fL (7.2-11.7) 06/26/17 09:22 Neut % (Auto) 73.8 % (50.0-75.0) 06/26/17 09:22 Lymph % (Auto) 16.3 % (20.0-40.0) L 06/26/17 09:22 [place] % (Auto) 7.8 % (0.0-10.0) 06/26/17 09:22 Eos % (Auto) 1.7 % (0.0-4.0) 06/26/17 09:22 Baso % (Auto) 0.4 % (0.0-2.0) 06/26/17 09:22 Neut # 8.1 K/uL (1.8-7.0) H 06/26/17 09:22 Lymph # 1.8 K/uL (1.0-4.3) 06/26/17 09:22 [place] # 0.9 K/uL (0.0-0.8) H 06/26/17 09:22 Eos # 0.2 K/uL (0.0-0.7) 06/26/17 09:22 Baso # 0.0 K/uL (0.0-0.2) 06/26/17 09:22 Neutrophils % (Manual) 86 % (50-75) H 06/23/17 07:13 Band Neutrophils % 4 % (0-2) H 06/23/17 07:13 Lymphocytes % (Manual) 6 % (20-40) L 06/23/17 07:13 Monocytes % (Manual) 4 % (0-10) 06/23/17 07:13 Basophils % (Manual) 1 % (0-2) 06/20/17 21:35 Platelet Estimate Normal (NORMAL) 06/23/17 07:13 Large Platelets Present 06/20/17 21:35 Hypochromasia (manual) Slight 06/23/17 07:13 Poikilocytosis (manual Slight 06/23/17 07:13 Anisocytosis (manual) Slight 06/23/17 07:13 Microcytosis (manual) Slight 06/22/17 07:16 Sodium 137 mmol/L (132-148) 06/26/17 09:22 Potassium 3.1 mmol/L (3.6-5.2) L 06/26/17 09:22 Chloride 101 mmol/L (98-107) 06/26/17 09:22 Carbon Dioxide 30 mmol/L (22-30) 06/26/17 09:22 Anion Gap 10 (10-20) 06/26/17 09:22 BUN 7 mg/dL (7-17) 06/26/17 09:22 Creatinine 0.6 mg/dL (0.7-1.2) L 06/26/17 09:22 Est GFR ( Amer) > 60 06/26/17 09:22 Est GFR (Non-Af Amer) > 60 06/26/17 09:22 Random Glucose 115 mg/dL (65-105) H 06/26/17 09:22 Hemoglobin A1c 5.9 % (4.2-6.5) 06/22/17 07:16 Lactic Acid 1.4 mmol/L (0.7-2.1) 06/21/17 09:56 Calcium 8.6 mg/dl (8.6-10.4) 06/26/17 09:22 Phosphorus 3.2 mg/dL (2.5-4.5) 06/26/17 09:22 Magnesium 1.6 mg/dL (1.6-2.3) 06/26/17 09:22 Total Bilirubin 0.5 mg/dL (0.2-1.3) 06/26/17 09:22 AST 92 U/L (14-36) H D 06/26/17 09:22 ALT 111 U/L (9-52) H D 06/26/17 09:22 Alkaline Phosphatase 92 U/L (38-126) 06/26/17 09:22 Total Protein 7.6 g/dL (6.3-8.3) 06/26/17 09:22 Albumin 3.7 g/dL (3.5-5.0) 06/26/17 09:22 Globulin 3.8 gm/dL (2.2-3.9) 06/26/17 09:22 Albumin/Globulin Ratio 1.0 (1.0-2.1) 06/26/17 09:22 Triglycerides 36 mg/dL (0-149) 06/21/17 06:39 Cholesterol 141 mg/dL (0-199) 06/21/17 06:39 LDL Cholesterol Direct 63 mg/dL (0-129) 06/21/17 06:39 HDL Cholesterol 57 mg/dL (30-70) 06/21/17 06:39 Lipase 43 U/L (23-300) 06/20/17 21:35 Urine Color Straw (YELLOW) 06/23/17 20:43 Urine Clarity Clear (Clear) 06/23/17 20:43 Urine pH 7.0 (5.0-8.0) 06/23/17 20:43 Ur Specific [place] 1.011 (1.003-1.030) 06/23/17 20:43 Urine Protein Negative mg/dL (NEGATIVE) 06/23/17 20:43 Urine Glucose (UA) Normal mg/dL (Normal) 06/23/17 20:43 Urine Ketones Negative mg/dL (NEGATIVE) 06/23/17 20:43 Urine Blood 2+ (NEGATIVE) H 06/23/17 20:43 Urine Nitrate Negative (NEGATIVE) 06/23/17 20:43 Urine Bilirubin Negative (NEGATIVE) 06/23/17 20:43 Urine Urobilinogen Normal mg/dL (0.2-1.0) 06/23/17 20:43 Ur Leukocyte Esterase Trace Cornelio/uL (Negative) 06/23/17 20:43 Urine WBC (Auto) 16 /hpf (0-5) H 06/23/17 20:43 Urine RBC (Auto) 16 /hpf (0-3) H 06/23/17 20:43 Urine Bacteria Many (<OCC) H 06/20/17 22:59 C. difficile Ag & Toxin Negative (NEGATIVE) 06/23/17 14:15 - Hospital Course Hospital Course: "CC: "pain in my belly" This is a 56 year old lady with PMHx hyperlipidemia and nephrolithiasis who presents of sudden onset suprapubic pain. It is described as a non-radiating cramping pain 10/10 in intensity. It began at around 4:30 PM yesterday per patient. It seems to have improved with IV fluids and Toradol in the ED. Patient also complaining of nausea and vomiting. Patient cannot count the number of times she has vomited today as a result of this issue. Patient denies dysuria or pressure with urination. However, she does admit that she usually doesn't feel these symptoms when she has a UTI. Patient admits intermittent chills but denies fever." Hospital Course: Patient was admitted on 06/21/17 for suspected acute pyelonephritis and nephrolithiasis. CT of the abdomen on 06/20/17 showed mild left hydronephrosis and perinephric stranding with suspected recently passed 4 mm calculus which was now in the bladder. Patient's UA showed positive nitrates, 3+ LE, 3+ blood, and 2+ protein, along with 22.6 WBC and 11 bands on CBC. Her blood and urine cultures drawn on 06/20/17 showed E. coli. She was given ceftriazone in ED, and started on Merrem 1 gm q8h and Vancomycin 1 gm q12h on 06/21/17. Later, she was switched to Ciprofloxacin 400 mg/200 ml D5W. ID (Dr. Clarke) and Nephro (Dr. Bennett) were consulted. Patient was also given Flomax 0.4 mg po daily and was asked to strain urine for stone. Echo was done which ruled outa vegetation and patient had normal LVEF of 64. Blood culture and urine culture from 06/23 were negative. Patient will follow up with urology as an outpatient for possible lithotripsy. Patient was treated for her history of HLD with Crestor 5mg po HS. Her lipid panel showed Triglycerides 36, cholesterol 141, LDL 63, and HDL 57, for which she was started on Crestor 5 mg po HS. Patient had a few days of diarrhea. Patient given florastor and c dif checked which was negative. Diarrhea resolved. Patient found to be hypokalemic which was repleted with KDur as needed. Patient's abdominal pain has resolved. This is a summary of the patient's hospital course, please see chart for full details. Patient stable for discharge as per Dr. Abdul. Patient to return to ED if symptoms return. Discharge Exam - Additional Findings Additional findings: - Constitutional Appears: Non-toxic - Head Exam Head Exam: ATRAUMATIC, NORMAL INSPECTION, NORMOCEPHALIC - Eye Exam Eye Exam: EOMI, Normal appearance - ENT Exam ENT Exam: Mucous Membranes Moist - Respiratory Exam Respiratory Exam: Clear to Ausculation Bilateral, NORMAL BREATHING PATTERN - Cardiovascular Exam Cardiovascular Exam: REGULAR RHYTHM, +S1, +S2 - GI/Abdominal Exam GI & Abdominal Exam: Soft, Tenderness, Normal Bowel Sounds - Extremities Exam Extremities Exam: Full ROM, Normal Inspection. absent: Pedal Edema - Neurological Exam Neurological Exam: Alert, Awake, Oriented x3 - Psychiatric Exam Psychiatric exam: Normal Affect, Normal Mood - Skin Skin Exam: Intact, Normal Color, Warm Discharge Plan - Discharge Medications Prescriptions: Ciprofloxacin HCl [Cipro] 500 mg PO Q12H #17 tablet Tamsulosin [Flomax] 0.4 mg PO DAILY #5 cap - Follow Up Plan Condition: FAIR Disposition: HOME/ ROUTINE Instructions: Ciprofloxacin (By mouth), Tamsulosin (By mouth), Kidney Stones ( DC), Acute Pyelonephritis (DC) Additional Instructions: Patient stable for discharge as per Dr. Abdul. Patient to continue taking Cipro twice a day for 8 more days. Patient to continue taking Flomax once daily this week and follow up with Dr. Bennett this week. Patient to continue home medications. Patient should return to Emergency Room if symptoms return. Patient explained instructions who understands and agrees. Referrals: Juan Jose Bennett Jr., MD [Staff Provider] - <Shahram Abdul - Last Filed: 06/27/17 18:17> Provider - Provider Date of Admission: 06/21/17 00:13 Attending physician: Wolfgang Hoff MD Hospital Course - Lab Results Lab Results: Micro Results 06/23/17 17:05 Blood-Venous Blood Culture - Preliminary NO GROWTH AFTER 4 DAYS 06/23/17 21:15 Urine,Clean Catch Urine Culture - Final No Growth (<1,000 CFU/ML) 06/20/17 12:03 Blood Blood Culture - Final Escherichia Coli 06/20/17 12:03 Blood Gram Stain - Final 06/20/17 23:09 Urine Urine Culture - Final Escherichia Coli 06/20/17 23:30 Blood Blood Culture - Final Escherichia Coli 06/20/17 23:30 Blood Gram Stain - Final Most Recent Lab Values WBC 11.0 K/uL (4.8-10.8) H 06/26/17 09:22 RBC 3.75 Mil/uL (3.80-5.20) L 06/26/17 09:22 Hgb 11.5 g/dL (11.0-16.0) 06/26/17 09:22 Hct 34.7 % (34.0-47.0) 06/26/17 09:22 MCV 92.7 fL (81.0-99.0) 06/26/17 09:22 MCH 30.6 pg (27.0-31.0) 06/26/17 09:22 MCHC 33.0 g/dL (33.0-37.0) 06/26/17 09:22 RDW 12.9 % (11.5-14.5) 06/26/17 09:22 Plt Count 249 K/uL (130-400) 06/26/17 09:22 MPV 7.8 fL (7.2-11.7) 06/26/17 09:22 Neut % (Auto) 73.8 % (50.0-75.0) 06/26/17 09:22 Lymph % (Auto) 16.3 % (20.0-40.0) L 06/26/17 09:22 [place] % (Auto) 7.8 % (0.0-10.0) 06/26/17 09:22 Eos % (Auto) 1.7 % (0.0-4.0) 06/26/17 09:22 Baso % (Auto) 0.4 % (0.0-2.0) 06/26/17 09:22 Neut # 8.1 K/uL (1.8-7.0) H 06/26/17 09:22 Lymph # 1.8 K/uL (1.0-4.3) 06/26/17 09:22 [place] # 0.9 K/uL (0.0-0.8) H 06/26/17 09:22 Eos # 0.2 K/uL (0.0-0.7) 06/26/17 09:22 Baso # 0.0 K/uL (0.0-0.2) 06/26/17 09:22 Neutrophils % (Manual) 86 % (50-75) H 06/23/17 07:13 Band Neutrophils % 4 % (0-2) H 06/23/17 07:13 Lymphocytes % (Manual) 6 % (20-40) L 06/23/17 07:13 Monocytes % (Manual) 4 % (0-10) 06/23/17 07:13 Basophils % (Manual) 1 % (0-2) 06/20/17 21:35 Platelet Estimate Normal (NORMAL) 06/23/17 07:13 Large Platelets Present 06/20/17 21:35 Hypochromasia (manual) Slight 06/23/17 07:13 Poikilocytosis (manual Slight 06/23/17 07:13 Anisocytosis (manual) Slight 06/23/17 07:13 Microcytosis (manual) Slight 06/22/17 07:16 Sodium 137 mmol/L (132-148) 06/26/17 09:22 Potassium 3.1 mmol/L (3.6-5.2) L 06/26/17 09:22 Chloride 101 mmol/L (98-107) 06/26/17 09:22 Carbon Dioxide 30 mmol/L (22-30) 06/26/17 09:22 Anion Gap 10 (10-20) 06/26/17 09:22 BUN 7 mg/dL (7-17) 06/26/17 09:22 Creatinine 0.6 mg/dL (0.7-1.2) L 06/26/17 09:22 Est GFR ( Amer) > 60 06/26/17 09:22 Est GFR (Non-Af Amer) > 60 06/26/17 09:22 Random Glucose 115 mg/dL (65-105) H 06/26/17 09:22 Hemoglobin A1c 5.9 % (4.2-6.5) 06/22/17 07:16 Lactic Acid 1.4 mmol/L (0.7-2.1) 06/21/17 09:56 Calcium 8.6 mg/dl (8.6-10.4) 06/26/17 09:22 Phosphorus 3.2 mg/dL (2.5-4.5) 06/26/17 09:22 Magnesium 1.6 mg/dL (1.6-2.3) 06/26/17 09:22 Total Bilirubin 0.5 mg/dL (0.2-1.3) 06/26/17 09:22 AST 92 U/L (14-36) H D 06/26/17 09:22 ALT 111 U/L (9-52) H D 06/26/17 09:22 Alkaline Phosphatase 92 U/L (38-126) 06/26/17 09:22 Total Protein 7.6 g/dL (6.3-8.3) 06/26/17 09:22 Albumin 3.7 g/dL (3.5-5.0) 06/26/17 09:22 Globulin 3.8 gm/dL (2.2-3.9) 06/26/17 09:22 Albumin/Globulin Ratio 1.0 (1.0-2.1) 06/26/17 09:22 Triglycerides 36 mg/dL (0-149) 06/21/17 06:39 Cholesterol 141 mg/dL (0-199) 06/21/17 06:39 LDL Cholesterol Direct 63 mg/dL (0-129) 06/21/17 06:39 HDL Cholesterol 57 mg/dL (30-70) 06/21/17 06:39 Lipase 43 U/L (23-300) 06/20/17 21:35 Urine Color Straw (YELLOW) 06/23/17 20:43 Urine Clarity Clear (Clear) 06/23/17 20:43 Urine pH 7.0 (5.0-8.0) 06/23/17 20:43 Ur Specific [place] 1.011 (1.003-1.030) 06/23/17 20:43 Urine Protein Negative mg/dL (NEGATIVE) 06/23/17 20:43 Urine Glucose (UA) Normal mg/dL (Normal) 06/23/17 20:43 Urine Ketones Negative mg/dL (NEGATIVE) 06/23/17 20:43 Urine Blood 2+ (NEGATIVE) H 06/23/17 20:43 Urine Nitrate Negative (NEGATIVE) 06/23/17 20:43 Urine Bilirubin Negative (NEGATIVE) 06/23/17 20:43 Urine Urobilinogen Normal mg/dL (0.2-1.0) 06/23/17 20:43 Ur Leukocyte Esterase Trace Cornelio/uL (Negative) 06/23/17 20:43 Urine WBC (Auto) 16 /hpf (0-5) H 06/23/17 20:43 Urine RBC (Auto) 16 /hpf (0-3) H 06/23/17 20:43 Urine Bacteria Many (<OCC) H 06/20/17 22:59 C. difficile Ag & Toxin Negative (NEGATIVE) 06/23/17 14:15 Attending/Attestation - Attestation I have personally seen and examined this patient.: Yes I have fully participated in the care of the patient.: Yes I have reviewed all pertinent clinical information, including history, physical exam and plan: Yes Notes (Text): Patient was admitted on 06/21/17 for suspected acute pyelonephritis and nephrolithiasis. CT of the abdomen on 06/20/17 showed mild left hydronephrosis and perinephric stranding with suspected recently passed 4 mm calculus which was now in the bladder. Patient's UA showed positive nitrates, 3+ LE, 3+ blood, and 2+ protein, along with 22.6 WBC and 11 bands on CBC. Her blood and urine cultures drawn on 06/20/17 showed E. coli. She was given ceftriazone in ED, and started on Merrem 1 gm q8h and Vancomycin 1 gm q12h on 06/21/17. Later, she was switched to Ciprofloxacin 400 mg/200 ml D5W. ID (Dr. Clarke) and Nephro (Dr. Bennett) were consulted. Patient was also given Flomax 0.4 mg po daily and was asked to strain urine for stone. Echo was done which ruled outa vegetation and patient had normal LVEF of 64. Blood culture and urine culture from 06/23 were negative. Patient will follow up with urology as an outpatient for possible lithotripsy. Patient was treated for her history of HLD with Crestor 5mg po HS. Her lipid panel showed Triglycerides 36, cholesterol 141, LDL 63, and HDL 57, for which she was started on Crestor 5 mg po HS. Patient had a few days of diarrhea. Patient given florastor and c dif checked which was negative. Diarrhea resolved. Patient found to be hypokalemic which was repleted with KDur as needed. Patient's abdominal pain has resolved.
== END 2017-06-26 13:32 | disposition home or self-care (01) | DRG 872 ==
LOC: C.ER 19:58 → C.9E 06-21 00:13 → C.6T 06-21 00:48
PROVIDERS: ADMIT Internal Medicine; ATTEND Internal Medicine
DX: R78.81 Bacteremia (principal); N13.30 Unspecified hydronephrosis; N21.0 Calculus in bladder; B96.20 Unspecified Escherichia coli [E. coli] as the cause of diseases classified elsewhere; E87.6 Hypokalemia; I12.9 Hypertensive chronic kidney disease with stage 1 through stage 4 chronic kidney disease, or unspecified chronic kidney disease; N18.9 Chronic kidney disease, unspecified; E78.5 Hyperlipidemia, unspecified; E78.00 Pure hypercholesterolemia, unspecified; Z87.442 Personal history of urinary calculi; Z79.82 Long term (current) use of aspirin